=== PATIENT | male | born 1970 | race Caucasian/White ===

== ENCOUNTER 2017-11-06 00:16 | Inpatient (IN) ==
[2017-11-06] MEDS ORDERED: Ondansetron 4 MG/2 ML VIAL IVP PRN (02:27)
[2017-11-06] MEDS ORDERED: Naloxone 0.4 MG/ML INJ IVP PRN (02:27)
[2017-11-06] MEDS ORDERED: Ketorolac 30 MG/ML VIAL IVP PRN (02:27)
[2017-11-06] MEDS ORDERED: Ringers Solution, Lactated 1,000 ML ONE ×2 (02:36→15:02)
[2017-11-06] MEDS ORDERED: Isovue-370 500 ML INFUS..BTL IV ONE (02:43)
[2017-11-06] MEDS ORDERED: *HR* Dextrose 50 % in Water (Syg) 50 ML SYRINGE IVP ONE (02:46)
[2017-11-06 02:59] LABS: ABG Base Excess 16 mEq/L (-2 to 3); ABG HCO3 38 mEq/L (21-27); ABG Oxygen Saturation 94 % (95-98); ABG PCO2 38 mmHg (35-45); ABG PH 7.62 pH Units (7.32-7.45); ABG PO2 57 mmHg (85-104); ABG TCO2 40 mEq/L (20-26); Blood Gas Modality ASSIST CONTROL; Blood Gas PEEP 8 cm H2O; Blood Gas Respiration Rate 12; Blood Gas VT 550 cc
[2017-11-06] MEDS: Ringers Solution, Lactated 1,000 ML IVC ONE ×2 (03:07→15:34)
[2017-11-06 03:10] LABS: Basophils % 0.3 %; Eosinophils # 0.1 K/mcL (0.0-0.6); Hematocrit 39.7 % (37.5-50.1); Hemoglobin 11.1 g/dL (12.9-16.9); Immature Granulocytes % 0.6 % (0-4); Lymphocytes # 3.2 K/mcL (0.6-4.6); Lymphocytes % 30.2 %; Mean Corpuscular Volume 103.7 fL (83.0-100.0); Mean Platelet Volume 10.1 fL (9.4-12.4); Monocytes # 0.7 K/mcL (0.0-1.3); Monocytes % 6.7 %; Neutrophils # 6.5 K/mcL (1.6-8.9); Nucleated Red Blood Cells 0.2 /100 WBC (0); Platelet Count 199 K/mcL (140-400); Red Blood Count 3.83 M/mcL (4.19-5.50); Red Cell Distribution Width 15.5 % (11.5-14.5); Segmented Neutrophils % 61.2 %
[2017-11-06 03:12] LABS: Hypochromasia Present (Not Present); Platelet Estimate Normal (Normal)
[2017-11-06 03:15] LABS: INR 1.1; Prothrombin Time 12.6 Seconds (9.4-12.1)
--- NOTE | 2017-11-06 03:26 | Internal Med History&Physical ---
<Karel Padilla - Last Filed: 11/06/17 04:31> Date of Encounter: 11/06/17 Time of Encounter: 03:25 Internal Medicine - H&P: HPI Chief complaint: Unresponsive/hypoxia Admitted From: Emergency Dept History of present illness: Mr. Mckeon is a 47 year old male with history of chronic respiratory failure with tracheostomy, COPD presents from [place] ED due to acute hypoxia and unresponsiveness. Patient is minimally responsive at this time so history is somewhat limited and obtained from the medical record. Patient is a resident at an [facility] and was found unresponsive with oxygen saturation in the 50s. Patient required bagging support to eventually get his oxygen saturation to acceptable levels. Per the records upon arrival to the emergency department the patient was sitting up and looking around and requesting something to right with. The ED reported that the patient was able to communicate with them. Upon arrival to the intensive care unit the patient is minimally responsive to pain only. He does not appear to be in any acute distress. Past Med Surg Social Fam HX - Past Medical History Medical history: COPD, GERD, hyperlipidemia, hypertension, peripheral artery disease Additional medical history: dysphagia, thrombosis, acute resp failure, constipation, alcohol abuse, anemnia Psychiatric history: depression, other - Past Surgical History Additional surgical history: PEG tube site reversed. trach - Social History Smoking Status: Former smoker Alcohol use: unknown Drug use: unknown Internal Medicine - H&P: Meds Atorvastatin [Lipitor] 80 mg PO HS 08/17/17 [History] Escitalopram Oxalate 5 mg PO DAILY 08/17/17 [History] Folic Acid 1 mg PO DAILY 08/17/17 [History] Ipratropium/Albuterol Neb [Duoneb] 3 ml IH Q6HR 08/17/17 [History] Tramadol HCl [Ultram] 50 mg PO TID PRN 08/17/17 [History] Aspirin 81 mg PO DAILY tab.chew 08/18/17 [Rx] Bumetanide [Bumex] 0.5 mg PO DAILY 365 Days tablet 08/18/17 [Rx] Gabapentin [Neurontin] 400 mg PO TID 30 Days #90 capsule 08/18/17 [Rx] Lactobacillus [Culturelle] 1 each PO BID 3 Days cap.sprink 08/18/17 [Rx] Docusate [Colace] 100 mg PO TID 09/04/17 [History] Multivit-Min/Iron Fum/Folic AC [Olmsw-Mvdbqnq-Gcnzumvx Tablet] 1 each PO DAILY 09/04/17 [History] Scopolamine Patch [Transderm-Scop] 1.5 mg TD Q72H 09/04/17 [History] Sennosides [Senna] 8.6 mg PO TID 09/04/17 [History] Acetaminophen [Tylenol] 650 mg PO Q6H PRN 11/05/17 [History] Bisacodyl [Dulcolax] 10 mg PO DAILY PRN 11/05/17 [History] Magnesium Citrate 296 ml PO PRN PRN 11/05/17 [History] Simethicone [Bicarsim] 80 mg PO PRN PRN 11/05/17 [History] 3 Allergy/AdvReac Type Severity Reaction Status Date / Time No Known Allergies Allergy Verified 09/04/17 21:39 ROS unobtainable: due to mental status All Systems PM: A 10-system review of systems was performed and is negative for pertinent findings except as documented above in the HPI. - Constitutional Vitals: Temp Pulse Resp BP Pulse Ox 100.2 F H 71 10 90/61 100 11/06/17 03:00 11/06/17 03:00 11/06/17 03:00 11/06/17 03:00 11/06/17 03:00 General appearance: Present: A&O X 0 Exam: Minimally responsive to painful stimuli only - Head Head exam: Present: atraumatic, normal inspection, normocephalic - Eye Eye exam: Present: EOMI - ENT ENT exam: Present: mucous membranes dry - Neck Neck exam general surgery: Present: supple. Absent: tenderness Additional comments: Tracheostomy present. No surrounding erythema or drainage noted. - Respiratory Respiratory exam: Absent: accessory muscle use, rales, respiratory distress, rhonchi, wheezes, tachypnea Additional comments: Coarse breath sounds - Cardiovascular Cardiovascular exam: Present: irregular rhythm. Absent: gallop, rubs, systolic murmur, tachycardia - GI/Abdominal GI/Abdominal exam: Present: diminished bowel sounds, soft. Absent: distended, tenderness Additional comments: Surgical scar from prior PEG tube present - Extremities Exam Extremities exam: Present: radial pulses palpable and symmetrical. Absent: cyanotic, joint swelling, mottling, pedal edema, warm Additional comments: Extremities cool to touch - Neurological Exam Neurological exam: Present: altered, facial droop Additional comments: Patient is minimally responsive to pain only. He moves all 4 extremities spontaneously with pain. There may be mild left-sided facial droop present however is difficult to appreciate. - Skin Skin exam: Present: dry, intact Additional comments: Cool extremities Internal Med - H&P Results - Labs CBC & Chem 7: 11/06/17 02:59 11/06/17 02:59 Labs: Short CBC 11/06/17 Range/Units 02:59 WBC 10.6 (4.3-11.1) K/mcL Hgb 11.1 L D (12.9-16.9) g/dL Hct 39.7 (37.5-50.1) % Plt Count 199 (140-400) K/mcL Neutrophils # 6.5 (1.6-8.9) K/mcL - ABG Interpretation ABG results: 11/06/17 02:55 ABG pH 7.62 H* ABG pCO2 38 ABG pO2 57 L D ABG HCO3 38 H ABG Total CO2 40 H ABG O2 Saturation 94 L ABG Base Excess 16 H - Assessment and plan (1) Acute encephalopathy Current Visit: Yes Status: Acute Assessment and plan: Patient only responsive to minimal pain at this time. Etiology unclear at this time, may be related to hypoxia versus underlying infectious process versus acute neurologic insult like CVA. No obvious focal deficits. CT the head was negative. Unfortunately the fact that the patient is requiring full ventilatory support at this time means he cannot undergo MRI. We will work to improve the patient's respiratory and metabolic status and continue to monitor his mental status. (2) Acute and chronic respiratory failure Current Visit: No Status: Acute Assessment and plan: Patient has chronic tracheostomy and per the report patient uses trach mask during the day and ventilator at night. We called the fpc who states that the patient uses the ventilator when he feels like he needs it and his ventilator settings are respiratory rate of 14, tidal volume 500, PEEP of 10 with 4 L of oxygen bleed in. Patient was hypoxic on arrival. Did respond well to higher peeps and oxygenation improved. Possibly due to noncompliance with ventilator when he needs it. Feel like underlying pneumonia and sepsis is less likely given his normal chest x-ray, lack of leukocytosis, tachycardia, fever. She developed sores support Will wean as tolerated. ABG revealed respiratory alkalosis, likely due to overventilation. We will place the patient on minimal vent settings with respiratory rate of 10 and tidal volume of 400 in an attempt to correct his alkalosis. Repeat ABG in approximately 30 minutes. Qualifiers: Respiratory failure complication: hypoxia Qualified Code(s): J96.21 - Acute and chronic respiratory failure with hypoxia (3) Hypovolemia Current Visit: Yes Status: Acute Assessment and plan: Patient has evidence of hypovolemia with low blood pressures. Unclear but may be related to decreased oral intake. Our giving fluid hydration with lactated Ringer boluses, patient has received 3 L. We will continue to monitor blood pressure and replace fluids as necessary. (4) Atrial fibrillation and flutter Current Visit: No Status: Acute Assessment and plan: Atrial fibrillation noted on telemetry. Per the records the patient has no history of atrial fibrillation but review of the patient's outpatient testing reveals that he has monitor strips previously that if shown atrial fibrillation , likely indicative of paroxysmal A. fib. Heart rate under control at this time. [id number] score of 1, aspirin only, no indication for anticoagulation at this time. Patient is already on aspirin 81 mg. We will check echocardiogram. Continue telemetry. (5) Macrocytic anemia Current Visit: No Status: Acute Assessment and plan: Patient has a history of macrocytosis, hemoglobin 11.1. Review of records showed a low-normal B12 which could be the cause. We will repeat B12 levels. If less than 400 consider supplementation. (6) DVT prophylaxis Current Visit: Yes Status: Acute Assessment and plan: Heparin 5000 units subcutaneous twice a day (7) Lactic acidosis Current Visit: Yes Status: Acute Assessment and plan: Etiology unclear however most likely appears to be related to a possible bulimia as well as hypoxia. Had peaked at 4.4, repeat down to 3.4, repeat pending. Are giving fluids. At this point I do not feel this is related to sepsis given that the patient does not have a leukocytosis, tachycardia, fever or clear source of infection. - Time Spent With Patient Total time spent is greater than 50% in coordination of care (as documented) at patient's floor/unit and/or counseling patient: <Levon Shell - Last Filed: 11/06/17 04:46> Date of Encounter: 11/06/17 Internal Medicine - H&P: HPI History of present illness: Mr. Mckeon is a 47 year old male All Systems PM: A 10-system review of systems was performed and is negative for pertinent findings except as documented above in the HPI. - Constitutional Vitals: Temp Pulse Resp BP Pulse Ox 100.2 F H 74 10 84/53 96 11/06/17 03:00 11/06/17 04:00 11/06/17 04:14 11/06/17 04:00 11/06/17 04:14 Internal Med - H&P Results - Labs CBC & Chem 7: 11/06/17 02:59 11/06/17 02:59 Labs: Short CBC 11/06/17 Range/Units 02:59 WBC 10.6 (4.3-11.1) K/mcL Hgb 11.1 L D (12.9-16.9) g/dL Hct 39.7 (37.5-50.1) % Plt Count 199 (140-400) K/mcL Neutrophils # 6.5 (1.6-8.9) K/mcL BMP 11/06/17 02:59 Sodium 145 Potassium 3.7 Chloride 100 Carbon Dioxide 40 H* BUN 10 Creatinine 0.64 L Glucose 105 Calcium 9.5 Liver Function 11/06/17 Range/Units 02:59 Total Bilirubin 0.8 (0.3-1.0) mg/dL Direct Bilirubin 0.3 H (0.0-0.2) mg/dL AST 15 (13-39) Units/L ALT 13 (7-52) Units/L Alkaline Phosphatase 80 (34-104) Units/L Albumin 3.2 L (3.5-5.7) g/dL - ABG Interpretation ABG results: 11/06/17 02:55 ABG pH 7.62 H* ABG pCO2 38 ABG pO2 57 L D ABG HCO3 38 H ABG Total CO2 40 H ABG O2 Saturation 94 L ABG Base Excess 16 H - Assessment and plan (1) Macrocytic anemia Current Visit: No Status: Acute (2) Acute and chronic respiratory failure Current Visit: No Status: Acute Qualifiers: Respiratory failure complication: hypoxia Qualified Code(s): J96.21 - Acute and chronic respiratory failure with hypoxia (3) Atrial fibrillation and flutter Current Visit: No Status: Acute (4) Acute encephalopathy Current Visit: Yes Status: Acute (5) DVT prophylaxis Current Visit: Yes Status: Acute (6) Hypovolemia Current Visit: Yes Status: Acute (7) Lactic acidosis Current Visit: Yes Status: Acute - Time Spent With Patient Total time spent is greater than 50% in coordination of care (as documented) at patient's floor/unit and/or counseling patient: - Attending Attestation Bryan Mckeon is a 47 year old man with a history of chronic respiratory failure on trach, COPD, HTN and PAD who presented to [facility] from [place] with the complaint of respiratory distress. It is reported that the patient was found poorly responsive with O2 saturation in the 50s. Manual bagging was attempted then subsequently was connected to a ventilator. His O2 sats remained in the 90s. He was seen to have a lactate of 2.9 which increased to 4.4 although the specimen was hemolyzed. No leukocytosis or anemia. CXR reviewed independently by me revealed no lobar consolidation or effusion. He was given IVF and empiric abx. At this time he appears poorly responsive. His BP systolic is in the high 80s to low 90s. Heart rate in the mid-70s. SpO2 93-94% on Fio2 60%. Physical exam remarkable for an obtunded white male who is only responsive to painful stimuli and localizes accordingly, pinpoint pupils, left facial droop with drooling on that side, not breathing over the set vent rate of 12, chest without wheezing, rales or rhonchi, abdomen soft and no apparent tenderness on palpation, contracted lower extremities, dry skin and mucous membranes. Will admit to ICU in the setting of acute hypoxic respiratory failure and acute encephalopathy. ABG/labs obtained showed a mixed respiratory and metabolic alkalosis based on my assessment. X-rays do not show any evidence of pneumonia, he is not tachycardic, no leukocytosis. Blood cultures have been obtained and empiric initial abx given however at this time will defer continuation of these agents. Continue fluid resuscitation in his dehydrated state. Will benefit from a chest CT w/ contrast to rule out pulmonary embolism. Reduce tidal volume and adjust to 4-6ml/kg PBW. Frequent ABG checks. Obtain UA and comprehensive labs. Mental status and facial drooping concerning for infarct; may need MRI if feasible if mental status does not improve with rehydration and oxygenation. Information obtained from outside is that he is on trach because of a drug overdose in the past; may have an element of hypoxic brain injury from that insult. CCT 65 mins. ILAN FAIRCHILD.
[2017-11-06 03:32] LABS: Alanine Aminotransferase 13 Units/L (7-52); Albumin 3.2 g/dL (3.5-5.7); Albumin/Globulin Ratio 1.1 (1.1-2.2); Alkaline Phosphatase 80 Units/L (34-104); Aspartate Amino Transferase 15 Units/L (13-39); BUN/Creatinine Ratio 16 (6-26); Bilirubin,Direct 0.3 mg/dL (0.0-0.2); Bilirubin,Indirect 0.5 mg/dL (0.0-1.2); Bilirubin,Total 0.8 mg/dL (0.3-1.0); Blood Urea Nitrogen 10 mg/dL (6-20); Calcium 9.5 mg/dL (8.6-10.3); Carbon Dioxide 40 mEq/L (23-29); Chloride 100 mEq/L (98-107); Glucose 105 mg/dL (70-105); Magnesium 1.7 mg/dL (1.6-2.6); Osmolality,Calculated 299 (280-300); Potassium 3.7 mEq/L (3.5-5.1); Sodium 145 mEq/L (136-145); Total Protein 6.2 g/dL (6.4-8.9); eGFR For Non-African Americans > 60 (> 60)
[2017-11-06] MEDS ORDERED: Ringers Solution, Lactated 1,000 ML IVC ONE ×2 (04:15→10:03)
[2017-11-06 05:06] LABS: Bilirubin,Urine Negative (Negative); Blood,Urine Negative (Negative); Clarity,Urine Clear (Clear); Color,Urine Yellow (Yellow); Glucose,Urine (UA) Normal (Normal); Ketones,Urine Negative (Negative); Leukocyte Esterase,Urine Negative (Negative); Nitrite,Urine Negative (Negative); PH,Urine 7.5 pH Units (5.0-8.0); Protein,Urine Trace mg/dL (Neg-Trace); Urobilinogen,Urine Normal (Normal)
[2017-11-06 05:09] LABS: Bacteria,Urine None Seen per hpf (None-Few); Hyaline Casts,Urine None Seen per lpf (None-Few); Squamous Epithelial Cell,Urine Moderate per lpf (None-Few)
[2017-11-06 05:10] LABS: ABG Base Excess 15 mEq/L (-2 to 3); ABG HCO3 38 mEq/L (21-27); ABG Oxygen Saturation 91 % (95-98); ABG PCO2 39 mmHg (35-45); ABG PH 7.59 pH Units (7.32-7.45); ABG PO2 51 mmHg (85-104); ABG TCO2 39 mEq/L (20-26); Blood Gas Modality ASSIST CONTROL; Blood Gas PEEP 10 cm H2O; Blood Gas Respiration Rate 10; Blood Gas VT 400 cc
[2017-11-06] MEDS: Ringers Solution, Lactated 500 ML IVC SCH ×4 (06:06→17:52)
[2017-11-06 06:35] LABS: ABG Base Excess 17 mEq/L (-2 to 3); ABG HCO3 42 mEq/L (21-27); ABG Oxygen Saturation 94 % (95-98); ABG PCO2 49 mmHg (35-45); ABG PH 7.54 pH Units (7.32-7.45); ABG PO2 64 mmHg (85-104); ABG TCO2 43 mEq/L (20-26); Blood Gas Modality ASSIST CONTROL; Blood Gas PEEP 10 cm H2O; Blood Gas Respiration Rate 10; Blood Gas VT 350 cc
[2017-11-06] MEDS ORDERED: Aminoglycoside Consult 1 EACH MC ONE (07:18)
--- NOTE | 2017-11-06 08:38 | Pulmonology Consult Note ---
<KianaSachin S - Last Filed: 11/06/17 11:42> Date of Encounter: 11/06/17 Time of Encounter: 08:00 Assessment and Plan (1) Acute encephalopathy Current Visit: Yes Status: Acute Patient only minimally responsive to painful stimuli Patient on ventilatory support CT head negative for acute infarct/bleed May order MRI if clinical status doesn't improve ABG shows mixed respiratory and metabolic alkalosis Blood cultures ordered Patient started on empiric IV zosyn and vancomycin (2) Acute and chronic respiratory failure Current Visit: No Status: Acute Patient has chronic tracheostomy Reports say he uses trach mask during day and ventilator at night Patient on vent settings of FiO2 40%, PEEP 10, Tidal volume 350, saturating at 97% ABG shows mixed respiratory and metabolic alkalosis with pH of 7.54, pCO2 49, HCO3 42 (improved from previous ABGs one and three hours prior) Will repeat ABG Gave 2 doses of acetazolamide 250 mg IV Chest CTA showed LLL atelectasis vs PNA, but no evidence of PE CXR showed bibasilar atelectasis Started on empiric vancomycin and zosyn Qualifiers: Respiratory failure complication: hypoxia Qualified Code(s): J96.21 - Acute and chronic respiratory failure with hypoxia (3) Atrial fibrillation and flutter Current Visit: No Status: Acute Patient has previous visits with atrial fibrillation, likely paroxysmal afib Ordere echo Patient currently in sinus rhythm (4) Hypovolemia Current Visit: Yes Status: Acute Patient's BP 86/54 Gave 3 boluses of 1 liter LR upon arrival Patient on maintenance LR fluid now Ordered another bolus of LR Continue to monitor and replace fluids as necessary (5) Lactic acidosis Current Visit: Yes Status: Acute Patient's peak lactate was 4.4 Now downward trend 3.4 > 2.3 Unlikely to be sepsis with normal white count, no tachycardia, afebrile, and no clear source of infection (6) Macrocytic anemia Current Visit: No Status: Acute Patient has history of macrocytic anemia Hgb is 11.1 today Ordered B12 and folate levels Will consider supplementation if needed (7) DVT prophylaxis Current Visit: Yes Status: Acute Subcutaneous heparin History of Present Illness Consult date: 11/06/17 Requesting physician: Tomas Fuentes Reason for consult: other (Acute encephalopathy and hypotension) Chief complaint: Respiratory distress History of present illness: 47 year old male with PMHx of chronic resp failure s/p tracheostomy, COPD, and HTN presented to [facility] ED from [facility] with unresponsiveness and respiratory distress. Patient was reported to be saturating in the 50s. He was bagged to increase oxygenation to 90s. Patient was given 1 dose of vancomycin and zosyn for empiric coverage in ED. Per reports, patient was communicating with staff in ED. Patient also found to be hypotensive and was transferred to ICU. He is on mechanical ventilation and only minimally responsive to painful stimuli in ICU. Patient was given 1 liter bolus x3 and is now on maintenance LR fluid. Chest CT showed LLL atelectasis vs PNA, but no evidence of PE. Brain CT was negative for acute infarct. Patient's initial ABG showed mixed respiratory and metabolic alkalosis with pH of 7.62. Past Med Surg Social Fam HX - Past Medical History Medical history: COPD, GERD, hyperlipidemia, hypertension, peripheral artery disease Additional medical history: dysphagia, thrombosis, acute resp failure, constipation, alcohol abuse, anemnia Psychiatric history: depression, other - Past Surgical History Additional surgical history: PEG tube site reversed. trach - Social History Smoking Status: Former smoker Alcohol use: unknown Drug use: unknown Medications and Allergies Atorvastatin [Lipitor] 80 mg PO HS 08/17/17 [History] Escitalopram Oxalate 5 mg PO DAILY 08/17/17 [History] Folic Acid 1 mg PO DAILY 08/17/17 [History] Ipratropium/Albuterol Neb [Duoneb] 3 ml IH Q6HR 08/17/17 [History] Tramadol HCl [Ultram] 50 mg PO TID PRN 08/17/17 [History] Aspirin 81 mg PO DAILY tab.chew 08/18/17 [Rx] Bumetanide [Bumex] 0.5 mg PO DAILY 365 Days tablet 08/18/17 [Rx] Gabapentin [Neurontin] 400 mg PO TID 30 Days #90 capsule 08/18/17 [Rx] Lactobacillus [Culturelle] 1 each PO BID 3 Days cap.sprink 08/18/17 [Rx] Docusate [Colace] 100 mg PO TID 09/04/17 [History] Multivit-Min/Iron Fum/Folic AC [Mxpjr-Rmjgucr-Wfdjjwzd Tablet] 1 each PO DAILY 09/04/17 [History] Scopolamine Patch [Transderm-Scop] 1.5 mg TD Q72H 09/04/17 [History] Sennosides [Senna] 8.6 mg PO TID 09/04/17 [History] Acetaminophen [Tylenol] 650 mg PO Q6H PRN 11/05/17 [History] Bisacodyl [Dulcolax] 10 mg PO DAILY PRN 11/05/17 [History] Simethicone [Bicarsim] 80 mg PO PRN PRN 11/05/17 [History] Potassium Chloride [K-Tab ER] 20 meq PO DAILY 11/06/17 [History] 3 Allergy/AdvReac Type Severity Reaction Status Date / Time No Known Allergies Allergy Verified 09/04/17 21:39 All Systems: The remainder of the systems were reviewed and are negative Physical Examination Vital Signs: Vital Signs, Last 4 Hours Temp Pulse Resp BP Pulse Ox 11/06/17 08:00 98.2 F 11/06/17 07:15 10 78/42 100 11/06/17 07:00 72 10 78/42 95 11/06/17 06:23 10 81/53 100 11/06/17 06:00 73 10 81/53 100 11/06/17 05:00 63 95/84 General appearance: comatose Effort: other (on vent) Auscultation: bilateral: clear Cardiovascular: regular rate and rhythm Gastrointestinal: soft Integumentary: normal Extremities: no cyanosis, no edema unable to assess due to mental status Ventilator Settings Ventilator Settings: Ventilator Settings, Last 8 Hours Ventilator Tidal Volume 350 Setting Ventilator Tidal Volume 350 Setting Ventilator Tidal Volume 350 Setting Ventilator Tidal Volume 350 Setting Ventilator Tidal Volume 350 Setting Ventilator Tidal Volume 400 Setting Ventilator Tidal Volume 400 Setting Ventilator Tidal Volume 400 Setting Ventilator Tidal Volume 450 Setting Ventilator Tidal Volume 550 Setting Ventilator Tidal Volume 550 Setting Ventilator Tidal Volume 550 Setting Ventilator Respiratory Rate 10 Setting Ventilator Respiratory Rate 10 Setting Ventilator Respiratory Rate 10 Setting Ventilator Respiratory Rate 10 Setting Ventilator Respiratory Rate 10 Setting Ventilator Respiratory Rate 10 Setting Ventilator Respiratory Rate 10 Setting Ventilator Respiratory Rate 10 Setting Ventilator Respiratory Rate 10 Setting Ventilator Respiratory Rate 12 Setting Ventilator Respiratory Rate 12 Setting Ventilator Respiratory Rate 12 Setting Actual Respiratory Rate 10 Actual Respiratory Rate 10 Actual Respiratory Rate 10 Actual Respiratory Rate 10 Actual Respiratory Rate 10 Actual Respiratory Rate 10 Actual Respiratory Rate 12 Actual Respiratory Rate 24 Positive End Expiratory 10 Pressure Positive End Expiratory 10 Pressure Positive End Expiratory 10 Pressure Positive End Expiratory 10 Pressure Positive End Expiratory 10 Pressure Positive End Expiratory 10 Pressure Positive End Expiratory 10 Pressure Positive End Expiratory 10 Pressure Positive End Expiratory 8 Pressure Positive End Expiratory 8 Pressure Positive End Expiratory 5 Pressure Positive End Expiratory 5 Pressure Peak Inspiratory Airway 23 Pressure Peak Inspiratory Airway 23 Pressure Peak Inspiratory Airway 23 Pressure Peak Inspiratory Airway 24 Pressure Peak Inspiratory Airway 27 Pressure Peak Inspiratory Airway 27 Pressure Peak Inspiratory Airway 25 Pressure Peak Inspiratory Airway 27 Pressure Results - Laboratory Findings CBC and BMP: 11/06/17 02:59 11/06/17 02:59 ABG ABG pH 7.54 pH Units (7.32-7.45) H 11/06/17 06:32 ABG pCO2 49 mmHg (35-45) H 11/06/17 06:32 ABG pO2 64 mmHg (85-104) L 11/06/17 06:32 ABG O2 Saturation 94 % (95-98) L 11/06/17 06:32 PT/INR, D-dimer PT 12.6 Seconds (9.4-12.1) H 11/06/17 02:59 Abnormal lab findings: Abnormal lab results RBC 3.83 M/mcL (4.19-5.50) L 11/06/17 02:59 Hgb 11.1 g/dL (12.9-16.9) L D 11/06/17 02:59 MCV 103.7 fL (83.0-100.0) H 11/06/17 02:59 MCHC 28.0 g/dL (31.6-35.5) L 11/06/17 02:59 RDW 15.5 % (11.5-14.5) H 11/06/17 02:59 Nucleated RBCs/100 WBC 0.2 /100 WBC (0) H 11/06/17 02:59 Hypochromasia Present (Not Present) A 11/06/17 02:59 PT 12.6 Seconds (9.4-12.1) H 11/06/17 02:59 ABG pH 7.54 pH Units (7.32-7.45) H 11/06/17 06:32 ABG pCO2 49 mmHg (35-45) H 11/06/17 06:32 ABG pO2 64 mmHg (85-104) L 11/06/17 06:32 ABG HCO3 42 mEq/L (21-27) H 11/06/17 06:32 ABG Total CO2 43 mEq/L (20-26) H 11/06/17 06:32 ABG O2 Saturation 94 % (95-98) L 11/06/17 06:32 ABG Base Excess 17 mEq/L (-2 to 3) H 11/06/17 06:32 Carbon Dioxide 40 mEq/L (23-29) H* 11/06/17 02:59 Creatinine 0.64 mg/dL (0.70-1.30) L 11/06/17 02:59 Lactic Acid 3.4 mmol/L (0.5-2.2) H 11/06/17 02:59 Direct Bilirubin 0.3 mg/dL (0.0-0.2) H 11/06/17 02:59 Serum Total Protein 6.2 g/dL (6.4-8.9) L 11/06/17 02:59 Albumin 3.2 g/dL (3.5-5.7) L 11/06/17 02:59 Ur Specific [place] 1.030 (1.010-1.025) H 11/06/17 05:00 Urine Microscopic RBC 3-5 per hpf (0-3) H 11/06/17 05:00 Urine Microscopic WBC 3-5 per hpf (0-3) H 11/06/17 05:00 Ur Squamous Epith Cells Moderate per lpf (None-Few) H 11/06/17 05:00 - Diagnostic Findings Chest x-ray: report reviewed, image reviewed CT scan - chest: report reviewed, image reviewed - Clinical Findings Intake & Output: Intake & Output 11/05/17 11/06/17 11/06/17 23:59 07:59 15:59 Intake Total 1999 Output Total 350 / 350 350 / 350 Balance 1650 / 1650 -350 / -350 Weight 94 kg Consult Discharge Plan - Plan Referrals: Best Perez MD [Primary Care Provider] - <Tomas Fuentes - Last Filed: 11/06/17 19:36> Date of Encounter: 11/06/17 All Systems: The remainder of the systems were reviewed and are negative Physical Examination Vital Signs: Vital Signs, Last 4 Hours Temp Pulse Resp BP Pulse Ox 11/06/17 08:00 98.2 F 11/06/17 07:15 10 78/42 100 11/06/17 07:00 72 10 78/42 95 11/06/17 06:23 10 81/53 100 11/06/17 06:00 73 10 81/53 100 11/06/17 05:00 63 95/84 Ventilator Settings Ventilator Settings: Ventilator Settings, Last 8 Hours Ventilator Tidal Volume 350 Setting Ventilator Tidal Volume 350 Setting Ventilator Tidal Volume 350 Setting Ventilator Tidal Volume 350 Setting Ventilator Tidal Volume 350 Setting Ventilator Tidal Volume 400 Setting Ventilator Tidal Volume 400 Setting Ventilator Tidal Volume 400 Setting Ventilator Tidal Volume 450 Setting Ventilator Tidal Volume 550 Setting Ventilator Tidal Volume 550 Setting Ventilator Tidal Volume 550 Setting Ventilator Respiratory Rate 10 Setting Ventilator Respiratory Rate 10 Setting Ventilator Respiratory Rate 10 Setting Ventilator Respiratory Rate 10 Setting Ventilator Respiratory Rate 10 Setting Ventilator Respiratory Rate 10 Setting Ventilator Respiratory Rate 10 Setting Ventilator Respiratory Rate 10 Setting Ventilator Respiratory Rate 10 Setting Ventilator Respiratory Rate 12 Setting Ventilator Respiratory Rate 12 Setting Ventilator Respiratory Rate 12 Setting Actual Respiratory Rate 10 Actual Respiratory Rate 10 Actual Respiratory Rate 10 Actual Respiratory Rate 10 Actual Respiratory Rate 10 Actual Respiratory Rate 10 Actual Respiratory Rate 12 Actual Respiratory Rate 24 Positive End Expiratory 10 Pressure Positive End Expiratory 10 Pressure Positive End Expiratory 10 Pressure Positive End Expiratory 10 Pressure Positive End Expiratory 10 Pressure Positive End Expiratory 10 Pressure Positive End Expiratory 10 Pressure Positive End Expiratory 10 Pressure Positive End Expiratory 8 Pressure Positive End Expiratory 8 Pressure Positive End Expiratory 5 Pressure Positive End Expiratory 5 Pressure Peak Inspiratory Airway 23 Pressure Peak Inspiratory Airway 23 Pressure Peak Inspiratory Airway 23 Pressure Peak Inspiratory Airway 24 Pressure Peak Inspiratory Airway 27 Pressure Peak Inspiratory Airway 27 Pressure Peak Inspiratory Airway 25 Pressure Peak Inspiratory Airway 27 Pressure Results - Laboratory Findings CBC and BMP: 11/06/17 02:59 11/06/17 02:59 ABG ABG pH 7.54 pH Units (7.32-7.45) H 11/06/17 06:32 ABG pCO2 49 mmHg (35-45) H 11/06/17 06:32 ABG pO2 64 mmHg (85-104) L 11/06/17 06:32 ABG O2 Saturation 94 % (95-98) L 11/06/17 06:32 PT/INR, D-dimer PT 12.6 Seconds (9.4-12.1) H 11/06/17 02:59 Abnormal lab findings: Abnormal lab results RBC 3.83 M/mcL (4.19-5.50) L 11/06/17 02:59 Hgb 11.1 g/dL (12.9-16.9) L D 11/06/17 02:59 MCV 103.7 fL (83.0-100.0) H 11/06/17 02:59 MCHC 28.0 g/dL (31.6-35.5) L 11/06/17 02:59 RDW 15.5 % (11.5-14.5) H 11/06/17 02:59 Nucleated RBCs/100 WBC 0.2 /100 WBC (0) H 11/06/17 02:59 Hypochromasia Present (Not Present) A 11/06/17 02:59 PT 12.6 Seconds (9.4-12.1) H 11/06/17 02:59 ABG pH 7.54 pH Units (7.32-7.45) H 11/06/17 06:32 ABG pCO2 49 mmHg (35-45) H 11/06/17 06:32 ABG pO2 64 mmHg (85-104) L 11/06/17 06:32 ABG HCO3 42 mEq/L (21-27) H 11/06/17 06:32 ABG Total CO2 43 mEq/L (20-26) H 11/06/17 06:32 ABG O2 Saturation 94 % (95-98) L 11/06/17 06:32 ABG Base Excess 17 mEq/L (-2 to 3) H 11/06/17 06:32 Carbon Dioxide 40 mEq/L (23-29) H* 11/06/17 02:59 Creatinine 0.64 mg/dL (0.70-1.30) L 11/06/17 02:59 Lactic Acid 3.4 mmol/L (0.5-2.2) H 11/06/17 02:59 Direct Bilirubin 0.3 mg/dL (0.0-0.2) H 11/06/17 02:59 Serum Total Protein 6.2 g/dL (6.4-8.9) L 11/06/17 02:59 Albumin 3.2 g/dL (3.5-5.7) L 11/06/17 02:59 Ur Specific [place] 1.030 (1.010-1.025) H 11/06/17 05:00 Urine Microscopic RBC 3-5 per hpf (0-3) H 11/06/17 05:00 Urine Microscopic WBC 3-5 per hpf (0-3) H 11/06/17 05:00 Ur Squamous Epith Cells Moderate per lpf (None-Few) H 11/06/17 05:00 - Clinical Findings Intake & Output: Intake & Output 11/05/17 11/06/17 11/06/17 23:59 07:59 15:59 Intake Total 1999 / 1999 Output Total 350 / 350 350 / 350 Balance 1650 / 1650 -350 / -350 Weight 94 kg - Attending Attestation I examined this patient and my medical decision-making was reviewed with the Resident Physician. I agree with the documented findings, disposition and treatment plan as described except to the extent set forth below. Patient seen and examined. Labs, radiology, chart personally reviewed. Agree with resident's history and physical, assessment, plan with following comments: [employer]ARN[employer]: Patient does not follows commands, is not clear to me about his baseline. CT head was done which was negative. This could be metabolic, however subclinical seizure would be in the differential diagnosis. If continue will consult neurology and may need EEG. Pulmonary: Acceptable oxygenation and ventilation. Patient has what they suspect rebound metabolic alkalosis and his vent setting has been changed. I doubt this is pneumonia, I suspect this is atelectasis, however we will continue broad-spectrum antibiotics at this time and tell cultures is back. Trach in place and patient will be on the vent for now until we've more informations. Cardiovascular: Hypertensive and will give him fluid resuscitation. Patient will need echo, I suspect this is hypovolemia, however a patient like this other causes such as sepsis in the differential diagnosis. GI: Nutrition per dietary and GI prophylaxis per routine. Keep NPO for now due to his mental status. Heme: DVT prophylaxis per routine ID: Continue antibiotics and plan to de-escalation when culture backs and negative. Renal; urine out put and renal funtion reviewed. Patient to have fluid resuscitation. Endorcine: blood glucose is monitored Lines: all lines checked and no evidence of infections Skin: skin care to prevent pressure ulcers per nursing routine care Will update family when they are available. I spent 35 min of Critical Care time with this patient. It involved decision making of high complexity to assess, manipulate, and support vital organ system failure and/or to prevent further life threatening deterioration of the patient' s condition. The time involved in the performance of separately reportable procedures was not counted toward critical care time.
[2017-11-06 11:58] LABS: ABG Base Excess 11 mEq/L (-2 to 3); ABG HCO3 36 mEq/L (21-27); ABG Oxygen Saturation 97 % (95-98); ABG PCO2 52 mmHg (35-45); ABG PH 7.45 pH Units (7.32-7.45); ABG PO2 84 mmHg (85-104); ABG TCO2 38 mEq/L (20-26); Blood Gas Modality AF; Blood Gas PEEP 10 cm H2O; Blood Gas Respiration Rate 10; Blood Gas VT 350 cc
[2017-11-06] MEDS: Hydrocortisone Sodium Succ 100 MG/2 ML VIAL IVP SCH (15:35)
[2017-11-06] MEDS: Piperacillin/Tazobactam 3.375 GM in 0.9 % Sodium Chloride Mini Bag 100 ML IVPB SCH (17:51)
[2017-11-06] MEDS: *HR* Heparin 5,000 UNIT/ML VIAL SQ SCH (22:15)
[2017-11-07] MEDS: Hydrocortisone Sodium Succ 100 MG/2 ML VIAL IVP SCH ×3 (00:50→18:13)
[2017-11-07 04:15] LABS: Basophils % 0.3 %; Eosinophils % 0.5 %; Hematocrit 36.7 % (37.5-50.1); Hemoglobin 10.7 g/dL (12.9-16.9); Immature Granulocytes % 0.9 % (0-4); Lymphocytes # 1.7 K/mcL (0.6-4.6); Lymphocytes % 26.7 %; Mean Corpuscular HGB Conc 29.2 g/dL (31.6-35.5); Mean Corpuscular Volume 99.5 fL (83.0-100.0); Mean Platelet Volume 10.4 fL (9.4-12.4); Monocytes # 0.3 K/mcL (0.0-1.3); Monocytes % 3.9 %; Neutrophils # 4.3 K/mcL (1.6-8.9); Nucleated Red Blood Cells 0.3 /100 WBC (0); Platelet Count 157 K/mcL (140-400); Red Blood Count 3.69 M/mcL (4.19-5.50); Red Cell Distribution Width 15.9 % (11.5-14.5); Segmented Neutrophils % 67.7 %
[2017-11-07 04:37] LABS: BUN/Creatinine Ratio 15 (6-26); Blood Urea Nitrogen 8 mg/dL (6-20); Calcium 8.7 mg/dL (8.6-10.3); Carbon Dioxide 29 mEq/L (23-29); Chloride 109 mEq/L (98-107); Glucose 140 mg/dL (70-105); Osmolality,Calculated 299 (280-300); Potassium 3.8 mEq/L (3.5-5.1); Sodium 144 mEq/L (136-145); eGFR For Non-African Americans > 60 (> 60)
[2017-11-07 05:05] LABS: Vitamin B12 466 pg/mL (250-1100)
[2017-11-07 05:12] LABS: Folate > 22.3 ng/mL (3.0-16.0)
[2017-11-07] MEDS: Piperacillin/Tazobactam 3.375 GM in 0.9 % Sodium Chloride Mini Bag 100 ML IVPB SCH ×2 (05:48→20:34)
[2017-11-07] MEDS: *HR* Heparin 5,000 UNIT/ML VIAL SQ SCH ×3 (05:49→20:37)
[2017-11-07] MEDS ORDERED: *HR* Heparin 5,000 UNIT/ML VIAL SQ SCH (06:00)
--- NOTE | 2017-11-07 10:03 | Pulmonology Progress Note ---
<KianaSachin S - Last Filed: 11/07/17 13:10> Date of Encounter: 11/07/17 Time of Encounter: 08:30 Assessment and Plan (1) Acute encephalopathy Current Visit: Yes Status: Acute Patient is now mildly responsive and follows some commands, this may be his baseline Patient on ventilatory support CT head negative for acute infarct/bleed May order MRI if clinical status doesn't improve ABG shows mixed respiratory and metabolic alkalosis Blood cultures ordered Patient started on empiric IV zosyn and vancomycin Swallow evaluation for diet Put in transfer order to (2) Acute on chronic respiratory failure Current Visit: Yes Status: Acute Patient has chronic tracheostomy Reports say he uses trach mask during day and ventilator at night Patient on vent settings of FiO2 40%, PEEP 10, Tidal volume 350, saturating at 100% Initial ABG showed mixed respiratoy and metabolic alkalosis Recent ABG shows pH of 7.45, pCO2 52, HCO3 36 (improved from previous ABGs) Gave 2 doses of acetazolamide 250 mg to improve alkalosis (11/06) Chest CTA showed LLL atelectasis vs PNA, but no evidence of PE CXR showed bibasilar atelectasis Started on empiric vancomycin and zosyn Ordered legionella antigen Ordered nasal swab - if negative, discontinue vancomycin Restarted mckenzie Qualifiers: Qualified Code(s): J96.21 - Acute and chronic respiratory failure with hypoxia (3) Hypovolemia Current Visit: Yes Status: Acute Patient's BP 136/88 Gave 4 boluses of 1 liter LR upon arrival and maintenance LR fluid for persistent hypotension with systolic in 70s-80s Started patient on IV hydrocortisone, which has significantly improved BP Continue to monitor and replace fluids as necessary (4) Lactic acidosis Current Visit: Yes Status: Acute Patient's peak lactate was 4.4 Now downward trend 3.4 > 2.3 Unlikely to be sepsis with normal white count, no tachycardia, afebrile, and no clear source of infection (5) Macrocytic anemia Current Visit: No Status: Acute Patient has history of macrocytic anemia Hgb is 11.1 > 10.7 today B12 normal Folate elevated at 22.3 (range 3-16) Will consider supplementation if needed (6) Atrial fibrillation and flutter Current Visit: Yes Status: Acute Patient has previous visits with atrial fibrillation, likely paroxysmal afib Echo shows EF of 55% with no valvular dysfunction Patient currently in sinus rhythm (7) DVT prophylaxis Current Visit: Yes Status: Acute Subcutaneous heparin Subjective Principal diagnosis: Acute respiratory failure Interval history: Patient seen this morning. He is mildly responsive and follows some commands, this may be his baseline. Yesterday he was started on IV hydrocortisone for hypotension. He is saturating well on vent. Unable to obtain history from patient. Objective PUL Vital signs: Last Vital Signs Temp 97.9 F 11/07/17 07:49 Pulse 74 11/07/17 08:50 Resp 20 11/07/17 09:34 BP 128/84 11/07/17 08:50 Pulse Ox 96 11/07/17 09:34 General appearance: no acute distress, lethargic Eyes: nonicteric Effort: other (on vent) Auscultation: bilateral: clear Cardiovascular: regular rate and rhythm Gastrointestinal: soft Integumentary: normal Extremities: no cyanosis, no edema Musculoskeletal: no deformities unable to assess due to mental status Ventilator Settings Ventilator Settings: Ventilator Settings, Last 8 Hours Ventilator Tidal Volume 350 Setting Ventilator Tidal Volume 350 Setting Ventilator Tidal Volume 350 Setting Ventilator Tidal Volume 350 Setting Ventilator Tidal Volume 350 Setting Ventilator Tidal Volume 350 Setting Ventilator Tidal Volume 350 Setting Ventilator Tidal Volume 350 Setting Ventilator Tidal Volume 350 Setting Ventilator Tidal Volume 350 Setting Ventilator Respiratory Rate 10 Setting Ventilator Respiratory Rate 10 Setting Ventilator Respiratory Rate 10 Setting Ventilator Respiratory Rate 10 Setting Ventilator Respiratory Rate 10 Setting Ventilator Respiratory Rate 10 Setting Ventilator Respiratory Rate 10 Setting Ventilator Respiratory Rate 10 Setting Ventilator Respiratory Rate 10 Setting Ventilator Respiratory Rate 10 Setting Actual Respiratory Rate 20 Actual Respiratory Rate 15 Actual Respiratory Rate 11 Actual Respiratory Rate 15 Actual Respiratory Rate 15 Actual Respiratory Rate 15 Actual Respiratory Rate 20 Actual Respiratory Rate 11 Actual Respiratory Rate 17 Actual Respiratory Rate 19 Positive End Expiratory 10 Pressure Positive End Expiratory 10 Pressure Positive End Expiratory 10 Pressure Positive End Expiratory 10 Pressure Peak Inspiratory Airway 22 Pressure Peak Inspiratory Airway 15 Pressure Peak Inspiratory Airway 20 Pressure Peak Inspiratory Airway 15 Pressure Peak Inspiratory Airway 15 Pressure Peak Inspiratory Airway 20 Pressure Peak Inspiratory Airway 19 Pressure Peak Inspiratory Airway 22 Pressure Peak Inspiratory Airway 20 Pressure Peak Inspiratory Airway 20 Pressure Results - Laboratory Findings CBC and BMP: 11/07/17 03:50 11/07/17 03:50 ABG ABG pH 7.45 pH Units (7.32-7.45) 11/06/17 11:55 ABG pCO2 52 mmHg (35-45) H 11/06/17 11:55 ABG pO2 84 mmHg (85-104) L 11/06/17 11:55 ABG O2 Saturation 97 % (95-98) 11/06/17 11:55 PT/INR, D-dimer PT 12.6 Seconds (9.4-12.1) H 11/06/17 02:59 Abnormal lab findings: Abnormal lab results RBC 3.69 M/mcL (4.19-5.50) L 11/07/17 03:50 Hgb 10.7 g/dL (12.9-16.9) L 11/07/17 03:50 Hct 36.7 % (37.5-50.1) L 11/07/17 03:50 MCHC 29.2 g/dL (31.6-35.5) L 11/07/17 03:50 RDW 15.9 % (11.5-14.5) H 11/07/17 03:50 Nucleated RBCs/100 WBC 0.3 /100 WBC (0) H 11/07/17 03:50 Hypochromasia Present (Not Present) A 11/06/17 02:59 PT 12.6 Seconds (9.4-12.1) H 11/06/17 02:59 ABG pCO2 52 mmHg (35-45) H 11/06/17 11:55 ABG pO2 84 mmHg (85-104) L 11/06/17 11:55 ABG HCO3 36 mEq/L (21-27) H 11/06/17 11:55 ABG Total CO2 38 mEq/L (20-26) H 11/06/17 11:55 ABG Base Excess 11 mEq/L (-2 to 3) H 11/06/17 11:55 Chloride 109 mEq/L (98-107) H 11/07/17 03:50 Creatinine 0.52 mg/dL (0.70-1.30) L 11/07/17 03:50 Glucose 140 mg/dL (70-105) H 11/07/17 03:50 POC Glucose 103 mg/dL (70-99) H 11/06/17 17:54 Lactic Acid 2.3 mmol/L (0.5-2.2) H 11/06/17 09:41 Direct Bilirubin 0.3 mg/dL (0.0-0.2) H 11/06/17 02:59 Serum Total Protein 6.2 g/dL (6.4-8.9) L 11/06/17 02:59 Albumin 3.2 g/dL (3.5-5.7) L 11/06/17 02:59 Folate > 22.3 ng/mL (3.0-16.0) H 11/07/17 03:50 Ur Specific [place] 1.030 (1.010-1.025) H 11/06/17 05:00 Urine Microscopic RBC 3-5 per hpf (0-3) H 11/06/17 05:00 Urine Microscopic WBC 3-5 per hpf (0-3) H 11/06/17 05:00 Ur Squamous Epith Cells Moderate per lpf (None-Few) H 11/06/17 05:00 - Microbiology Findings Microbiology Findings: Microbiology, Last 48 Hours 11/06/17 09:41 Blood Culture - Preliminary Peripheral Venipuncture Culture is incubating and being continuously monitored for growth. Final report to follow. - Diagnostic Findings Chest x-ray: report reviewed, image reviewed CT scan - chest: report reviewed, image reviewed - Clinical Findings Intake & Output: Intake & Output 11/06/17 11/07/17 11/07/17 23:59 07:59 15:59 Intake Total 2100 / 2100 250 / 250 Output Total 1550 / 1550 950 / 950 Balance 550 / 550 -700 / -700 Weight 92.49 kg Consult Discharge Plan - Plan Referrals: Best Perez MD [Primary Care Provider] - <John Shetty - Last Filed: 11/07/17 15:31> Date of Encounter: 11/07/17 Objective PUL Vital signs: Last Vital Signs Temp 98.5 F 11/07/17 11:46 Pulse 72 11/07/17 13:00 Resp 12 11/07/17 13:00 BP 139/98 11/07/17 13:00 Pulse Ox 100 11/07/17 13:00 Ventilator Settings Ventilator Settings: Ventilator Settings, Last 8 Hours Ventilator Tidal Volume 350 Setting Ventilator Tidal Volume 350 Setting Ventilator Tidal Volume 350 Setting Ventilator Tidal Volume 350 Setting Ventilator Tidal Volume 350 Setting Ventilator Tidal Volume 350 Setting Ventilator Tidal Volume 350 Setting Ventilator Respiratory Rate 10 Setting Ventilator Respiratory Rate 10 Setting Ventilator Respiratory Rate 10 Setting Ventilator Respiratory Rate 10 Setting Ventilator Respiratory Rate 10 Setting Ventilator Respiratory Rate 10 Setting Ventilator Respiratory Rate 10 Setting Actual Respiratory Rate 15 Actual Respiratory Rate 12 Actual Respiratory Rate 15 Actual Respiratory Rate 15 Actual Respiratory Rate 20 Actual Respiratory Rate 15 Actual Respiratory Rate 15 Positive End Expiratory 8 Pressure Positive End Expiratory 10 Pressure Peak Inspiratory Airway 15 Pressure Peak Inspiratory Airway 22 Pressure Peak Inspiratory Airway 15 Pressure Peak Inspiratory Airway 15 Pressure Peak Inspiratory Airway 22 Pressure Peak Inspiratory Airway 15 Pressure Peak Inspiratory Airway 15 Pressure Results - Laboratory Findings CBC and BMP: 11/07/17 03:50 11/07/17 03:50 ABG ABG pH 7.45 pH Units (7.32-7.45) 11/06/17 11:55 ABG pCO2 52 mmHg (35-45) H 11/06/17 11:55 ABG pO2 84 mmHg (85-104) L 11/06/17 11:55 ABG O2 Saturation 97 % (95-98) 11/06/17 11:55 PT/INR, D-dimer PT 12.6 Seconds (9.4-12.1) H 11/06/17 02:59 Abnormal lab findings: Abnormal lab results RBC 3.69 M/mcL (4.19-5.50) L 11/07/17 03:50 Hgb 10.7 g/dL (12.9-16.9) L 11/07/17 03:50 Hct 36.7 % (37.5-50.1) L 11/07/17 03:50 MCHC 29.2 g/dL (31.6-35.5) L 11/07/17 03:50 RDW 15.9 % (11.5-14.5) H 11/07/17 03:50 Nucleated RBCs/100 WBC 0.3 /100 WBC (0) H 11/07/17 03:50 Hypochromasia Present (Not Present) A 11/06/17 02:59 PT 12.6 Seconds (9.4-12.1) H 11/06/17 02:59 ABG pCO2 52 mmHg (35-45) H 11/06/17 11:55 ABG pO2 84 mmHg (85-104) L 11/06/17 11:55 ABG HCO3 36 mEq/L (21-27) H 11/06/17 11:55 ABG Total CO2 38 mEq/L (20-26) H 11/06/17 11:55 ABG Base Excess 11 mEq/L (-2 to 3) H 11/06/17 11:55 Chloride 109 mEq/L (98-107) H 11/07/17 03:50 Creatinine 0.52 mg/dL (0.70-1.30) L 11/07/17 03:50 Glucose 140 mg/dL (70-105) H 11/07/17 03:50 POC Glucose 103 mg/dL (70-99) H 11/06/17 17:54 Lactic Acid 2.3 mmol/L (0.5-2.2) H 11/06/17 09:41 Direct Bilirubin 0.3 mg/dL (0.0-0.2) H 11/06/17 02:59 Serum Total Protein 6.2 g/dL (6.4-8.9) L 11/06/17 02:59 Albumin 3.2 g/dL (3.5-5.7) L 11/06/17 02:59 Folate > 22.3 ng/mL (3.0-16.0) H 11/07/17 03:50 Ur Specific [place] 1.030 (1.010-1.025) H 11/06/17 05:00 Urine Microscopic RBC 3-5 per hpf (0-3) H 11/06/17 05:00 Urine Microscopic WBC 3-5 per hpf (0-3) H 11/06/17 05:00 Ur Squamous Epith Cells Moderate per lpf (None-Few) H 11/06/17 05:00 - Microbiology Findings Microbiology Findings: Microbiology, Last 48 Hours 11/07/17 Unknown Legionella Antigen - Final Urine,Catheterized 11/06/17 09:41 Blood Culture - Preliminary Peripheral Venipuncture Culture is incubating and being continuously monitored for growth. Final report to follow. - Clinical Findings Intake & Output: Intake & Output 11/06/17 11/07/17 11/07/17 23:59 07:59 15:59 Intake Total 2100 / 2100 250 / 250 Output Total 1550 / 1550 950 / 950 650 / 650 Balance 550 / 550 -700 / -700 -650 / -650 Weight 92.49 kg - Attending Attestation I saw and evaluated this patient and my medical decision-making was reviewed with the Resident Physician. I agree with the documented findings, disposition and treatment plan as described except to the extent set forth below. We independently had [id number] contact with the patient Patient seen and examined at bedside Labs, radiology, chart personally reviewed. Management was reviewed during multidisciplinary critical care rounds. [employer]: Patient is arousable following commands altered mental status due to encephalopathy most likely due to hypoxia and some hypercarbia complicated by alkalosis , looks like metabolic encephalopathy. Pulm: The patient developed this V/Q mismatch developed acute on chronic respiratory failure we will continue with broad-spectrum antibiotics and de- escalate accordingly diurese gently. Cards: Patient is hemodynamically stable FEN-GI: Diet according to nutrition Renal: Labs and output reviewed ID: To the broad-spectrum antibiotics will de-escalate accordingly if the nasal MRSA swab was negative will discontinue vancomycin. Heme/Onc: Thromboprophylaxis. Endo: Glucose Monitored Integ/MSK: Skin Care per routine ICU Nursing Protocol to prevent ulcers. Lines: All lines examined without evidence of infection : Dispo: Can Be transferred to stepdown. CODE:Full Code
--- NOTE | 2017-11-07 10:51 | Internal Med Progress Note ---
<Isai Scott - Last Filed: 11/07/17 15:33> Hospitalist Progress Note - Encounter Date of Encounter: 11/07/17 - Exam Vitals: Temp Pulse Resp BP Pulse Ox 98.5 F 72 12 139/98 100 11/07/17 11:46 11/07/17 13:00 11/07/17 13:00 11/07/17 13:00 11/07/17 13:00 - Assessment and Plan (1) Macrocytic anemia Current Visit: No Status: Acute (2) Acute and chronic respiratory failure Current Visit: No Status: Inactive (3) Atrial fibrillation and flutter Current Visit: No Status: Inactive (4) Acute encephalopathy Current Visit: Yes Status: Acute (5) DVT prophylaxis Current Visit: Yes Status: Acute (6) Hypovolemia Current Visit: Yes Status: Acute (7) Lactic acidosis Current Visit: Yes Status: Acute - Time Spent with Patient Total time spent is greater than 50% in coordination of care (as documented) at patient's floor/unit and/or counseling patient: Internal Medicine: Result - Labs CBC & Chem 7: 11/07/17 03:50 11/07/17 03:50 Labs: Short CBC 11/07/17 Range/Units 03:50 WBC 6.3 (4.3-11.1) K/mcL Hgb 10.7 L (12.9-16.9) g/dL Hct 36.7 L (37.5-50.1) % Plt Count 157 (140-400) K/mcL Neutrophils # 4.3 (1.6-8.9) K/mcL BMP 11/07/17 03:50 Sodium 144 Potassium 3.8 Chloride 109 H Carbon Dioxide 29 BUN 8 Creatinine 0.52 L Glucose 140 H Calcium 8.7 - ABG Interpretation ABG results: ABG ABG pH 7.45 pH Units (7.32-7.45) 11/06/17 11:55 ABG pCO2 52 mmHg (35-45) H 11/06/17 11:55 ABG pO2 84 mmHg (85-104) L 11/06/17 11:55 ABG O2 Saturation 97 % (95-98) 11/06/17 11:55 PT/INR, D-dimer PT 12.6 Seconds (9.4-12.1) H 11/06/17 02:59 - Impressions Impressions Echocardiogram 11/06/17 02:43 Impressions: LVEF 55%. Normal LV chamber size, wall thickness and function. Indeterminate diastolic function. Normal right ventricular structure and function. Unable to estimate RVSP due to lack of TR jet. No significant valvular dysfunction. Left Ventricular Wall Motion: Rest Echo Findings All wall segments showed normal motion. Findings: Study Quality * Technically sub-optimal due to poor echocardiographic windows. ECG Findings * Atrial fibrillation. Left Ventricle * LVEF 55%. * Normal LV chamber size, wall thickness and function. * Indeterminate diastolic function. Right Ventricle * Normal right ventricular structure and function. Left Atrium * Mildly dilated left atrium. Right Atrium * Normal right atrial size. Aortic Valve * Trileaflet aortic valve. * Mildly sclerotic aortic valve leaflets. * No aortic regurgitation. * No aortic stenosis. Mitral Valve * Normal mitral valve structure and function. * No mitral regurgitation. * No mitral stenosis. Tricuspid Valve * Normal tricuspid valve structure and function. * No tricuspid regurgitation. * Unable to estimate RVSP due to lack of TR jet. Pulmonic Valve * Normal pulmonic valve structure and function. * Trace pulmonic regurgitation. Aorta * Normally sized aortic root. Pericardium * The pericardium appears normal. IVC * Normal IVC dimensions and inspiratory collapse. Pulmonary Artery * Normal visualized portions of the main pulmonary artery. ADDENDUM: 11/07/17 0846 Impressions: LVEF 55%. Normal LV chamber size, wall thickness and function. Indeterminate diastolic function. Normal right ventricular structure and function. Unable to estimate RVSP due to lack of TR jet. No significant valvular dysfunction. Left Ventricular Wall Motion: Rest Echo Findings All wall segments showed normal motion. Findings: Study Quality * Technically sub-optimal due to poor echocardiographic windows. ECG Findings * Atrial fibrillation. Left Ventricle * LVEF 55%. * Normal LV chamber size, wall thickness and function. * Indeterminate diastolic function. Right Ventricle * Normal right ventricular structure and function. Left Atrium * Mildly dilated left atrium. Right Atrium * Normal right atrial size. Aortic Valve * Trileaflet aortic valve. * Mildly sclerotic aortic valve leaflets. * No aortic regurgitation. * No aortic stenosis. Mitral Valve * Normal mitral valve structure and function. * No mitral regurgitation. * No mitral stenosis. Tricuspid Valve * Normal tricuspid valve structure and function. * No tricuspid regurgitation. * Unable to estimate RVSP due to lack of TR jet. Pulmonic Valve * Normal pulmonic valve structure and function. * Trace pulmonic regurgitation. Aorta * Normally sized aortic root. Pericardium * The pericardium appears normal. IVC * The IVC is not well evaluated. Pulmonary Artery * Normal visualized portions of the main pulmonary artery. Consult Discharge Plan - Plan Referrals: Best Perez MD [Primary Care Provider] - - Attending Attestation Performed an independent interview and exam of this patient. I agree with the findings, assessment, and plan of Dr. Hatfield, internal medicine internet programmer. Is doing better. Blood pressure has remained stable since starting hydrocortisone. Would recommend maintaining the dose starting tomorrow. Patient is also on broad-spectrum antibiotics for possible sepsis although I may consider stopping antibiotics tomorrow and observing for a day. We could switch oral antibiotics to complete a seven-day course. No obvious infections is identified and therefore further antibiotics were be ordered depending on his clinical course. All culture data negative thus far. Gen NAD, arouses Skin warm and dry Neck trache in place Lungs - scattered coarse bs anteriorly Ht RRR Abd sfot +BS, NT Ext no sig edema 36 min critical time spent in care and management of this pt. Subseq day vent management <Haylee Hatfield - Last Filed: 11/07/17 18:02> Hospitalist Progress Note - Encounter Date of Encounter: 11/07/17 Time of Encounter: 10:40 - Subjective Interval History: Patient seen and examined in ICU. No acute events overnight. Patient is sleeping comfortably in bed. Nurse reports that patient has gotten better. States that blood pressure has stabilized, hes more alert, and he follows commands. Nurse reports that patient will be transferred to . On exam, patient has tracheostomy on ventilation. He is difficult to arouse, but follows commands. Unable to obtain any history from patient. - Exam Vitals: Temp Pulse Resp BP Pulse Ox 97.9 F 68 12 124/104 100 11/07/17 07:49 11/07/17 10:00 11/07/17 10:00 11/07/17 10:00 11/07/17 10:00 Exam: General: Morbidly obese. Difficult to arouse. No acute distress. Head: atraumatic, normocephalic. Eye: pupils equal and round. Sclera anicteric. EOMI. Neck: tracheostomy. Lungs: On ventilation. Diffuse rhonchi bilaterally. No rales or wheezes. No respiratory distress. No accessory muscle use. Cardiovascular: Normal S1 & S2. No rubs or gallops. No JVD. Pulse regular. Abdomen: Soft. Normal bowel sounds. Nondistended, no rigidity. Nontender. Extremities: No deformity, edema or tenderness, no joint swelling or clubbing. Skin: warm, dry, and intact. - Assessment and Plan (1) Acute encephalopathy Current Visit: Yes Status: Acute Assessment and Plan: On admission, patient was minimally responsive to pain only. Etiology unclear. Hypoxia vs infection vs neurologic. ABG showed mixed respiratory and metabolic alkalosis. Head CT was negative. CTA chest showed LLL atelectasis vs pneumonia. On ventilator support. Consider MRI if clinical status does not improve. Improved now mildly responsive and follows some commands. Continue empiric zosyn and vancomycin (day 2). Monitor renal function and for drug toxicity and dose-adjust antibiotics. Continue to monitor mental status. (2) Acute and chronic respiratory failure Current Visit: No Status: Acute Assessment and Plan: On admission, patient was hypoxic. Possibly secondary to ventilator noncompliance. History of COPD. History of chronic respiratory failure with tracheostomy. Trach mask at daytime , ventilator at night. Patients typical ventilator settings are respiratory rate 14, FiO2 40%, PEEP 10 , tidal vol 350. ABG showed mixed respiratory and metabolic alkalosis. CXR showed bibasilar atelectasis. CTA chest showed LLL atelectasis vs PNA. No PE. Patient given 2 doses acetazolamide on 11/06 to improve alkalosis. Repeat ABG showed pH 7.45, pCO2 52, HCO3 36. Improved. Check Legionella. Check nasal MRSA screen. DuoNebs. Continue antibiotics as above. (3) Hypovolemia Current Visit: Yes Status: Acute Assessment and Plan: On admission, blood pressure 84/53. Possibly secondary to decreased oral intake. Was given 4 boluses of 1L IVF upon arrival. Maintenance IVF LR. Continue IV hydrocortisone. Blood pressure significantly improved. (4) Lactic acidosis Current Visit: Yes Status: Acute Assessment and Plan: On admission, lactic acid 4.4. Unknown etiology. Infection unlikely due to absence of fever, tachycardia, leukocytosis, and clear source of infection. Downtrending. (5) Atrial fibrillation and flutter Current Visit: No Status: Acute Assessment and Plan: History of atrial fibrillation on previous monitor strips. CHADS-Vasc score 1. Echo shows LVEF 55%, no valvular dysfunction. Heart rate controlled. Currently in sinus rhythm. ASA only. (6) Macrocytic anemia Current Visit: No Status: Acute Assessment and Plan: History of macrocytic anemia. On admission, Hb 11.1. Vit B12 is normal at 466. Folate is elevated at 22.3. Today, Hb 10.7. Continue to monitor. (7) DVT prophylaxis Current Visit: Yes Status: Acute Assessment and Plan: Heparin 5000 units subcutaneous twice a day - Time Spent with Patient Total time spent is greater than 50% in coordination of care (as documented) at patient's floor/unit and/or counseling patient: Internal Medicine: Result - Labs CBC & Chem 7: 11/07/17 03:50 11/07/17 03:50 Labs: Short CBC 11/07/17 Range/Units 03:50 WBC 6.3 (4.3-11.1) K/mcL Hgb 10.7 L (12.9-16.9) g/dL Hct 36.7 L (37.5-50.1) % Plt Count 157 (140-400) K/mcL Neutrophils # 4.3 (1.6-8.9) K/mcL BMP 11/07/17 03:50 Sodium 144 Potassium 3.8 Chloride 109 H Carbon Dioxide 29 BUN 8 Creatinine 0.52 L Glucose 140 H Calcium 8.7 - ABG Interpretation ABG results: ABG ABG pH 7.45 pH Units (7.32-7.45) 11/06/17 11:55 ABG pCO2 52 mmHg (35-45) H 11/06/17 11:55 ABG pO2 84 mmHg (85-104) L 11/06/17 11:55 ABG O2 Saturation 97 % (95-98) 11/06/17 11:55 PT/INR, D-dimer PT 12.6 Seconds (9.4-12.1) H 11/06/17 02:59 - Impressions Impressions Echocardiogram 11/06/17 02:43 Impressions: LVEF 55%. Normal LV chamber size, wall thickness and function. Indeterminate diastolic function. Normal right ventricular structure and function. Unable to estimate RVSP due to lack of TR jet. No significant valvular dysfunction. Left Ventricular Wall Motion: Rest Echo Findings All wall segments showed normal motion. Findings: Study Quality * Technically sub-optimal due to poor echocardiographic windows. ECG Findings * Atrial fibrillation. Left Ventricle * LVEF 55%. * Normal LV chamber size, wall thickness and function. * Indeterminate diastolic function. Right Ventricle * Normal right ventricular structure and function. Left Atrium * Mildly dilated left atrium. Right Atrium * Normal right atrial size. Aortic Valve * Trileaflet aortic valve. * Mildly sclerotic aortic valve leaflets. * No aortic regurgitation. * No aortic stenosis. Mitral Valve * Normal mitral valve structure and function. * No mitral regurgitation. * No mitral stenosis. Tricuspid Valve * Normal tricuspid valve structure and function. * No tricuspid regurgitation. * Unable to estimate RVSP due to lack of TR jet. Pulmonic Valve * Normal pulmonic valve structure and function. * Trace pulmonic regurgitation. Aorta * Normally sized aortic root. Pericardium * The pericardium appears normal. IVC * Normal IVC dimensions and inspiratory collapse. Pulmonary Artery * Normal visualized portions of the main pulmonary artery. ADDENDUM: 11/07/17 0846 Impressions: LVEF 55%. Normal LV chamber size, wall thickness and function. Indeterminate diastolic function. Normal right ventricular structure and function. Unable to estimate RVSP due to lack of TR jet. No significant valvular dysfunction. Left Ventricular Wall Motion: Rest Echo Findings All wall segments showed normal motion. Findings: Study Quality * Technically sub-optimal due to poor echocardiographic windows. ECG Findings * Atrial fibrillation. Left Ventricle * LVEF 55%. * Normal LV chamber size, wall thickness and function. * Indeterminate diastolic function. Right Ventricle * Normal right ventricular structure and function. Left Atrium * Mildly dilated left atrium. Right Atrium * Normal right atrial size. Aortic Valve * Trileaflet aortic valve. * Mildly sclerotic aortic valve leaflets. * No aortic regurgitation. * No aortic stenosis. Mitral Valve * Normal mitral valve structure and function. * No mitral regurgitation. * No mitral stenosis. Tricuspid Valve * Normal tricuspid valve structure and function. * No tricuspid regurgitation. * Unable to estimate RVSP due to lack of TR jet. Pulmonic Valve * Normal pulmonic valve structure and function. * Trace pulmonic regurgitation. Aorta * Normally sized aortic root. Pericardium * The pericardium appears normal. IVC * The IVC is not well evaluated. Pulmonary Artery * Normal visualized portions of the main pulmonary artery. <Isai Scott - Last Filed: 11/07/17 15:33> (2) Acute and chronic respiratory failure Qualifiers: Respiratory failure complication: hypoxia Qualified Code(s): J96.21 - Acute and chronic respiratory failure with hypoxia <Haylee Hatfield - Last Filed: 11/07/17 18:02> (2) Acute and chronic respiratory failure Qualifiers: Respiratory failure complication: hypoxia Qualified Code(s): J96.21 - Acute and chronic respiratory failure with hypoxia
[2017-11-07] MEDS ORDERED: Hydrocortisone Sodium Succ 100 MG/2 ML VIAL IVP SCH (11:39)
[2017-11-07] MEDS ORDERED: Artificial Tears SOLN 15 ML BOTTLE BOTH EYES PRN ×2 (11:44→15:37)
[2017-11-07] MEDS ORDERED: Artificial Tears SOLN 15 ML BOTTLE BOTH EYES SCH (12:00)
[2017-11-07] MEDS ORDERED: Piperacillin/Tazobactam 3.375 GM in 0.9 % Sodium Chloride Mini Bag 100 ML IVPB SCH (14:00)
[2017-11-07] MEDS: Ipratropium/Albuterol Neb 3 ML IH SCH ×4 (15:29→23:09)
[2017-11-07] MEDS ORDERED: Naloxone 0.4 MG/ML INJ IVP PRN (15:37)
[2017-11-07] MEDS ORDERED: Acetaminophen 325 MG TABLET PO PRN (15:37)
[2017-11-07] MEDS ORDERED: Ondansetron 4 MG/2 ML VIAL IVP PRN (15:37)
[2017-11-07] MEDS ORDERED: Ipratropium/Albuterol Neb 3 ML IH SCH (16:00)
[2017-11-07] MEDS: Artificial Tears SOLN 15 ML BOTTLE BOTH EYES SCH ×2 (18:07→20:38)
[2017-11-07] MEDS: Chlorhexidine Rinse 15 ML MOUTHWASH MM SCH (20:29)
[2017-11-07] MEDS ORDERED: Chlorhexidine Rinse 15 ML MOUTHWASH MM SCH (21:00)
[2017-11-07] MEDS: Acetylcysteine 10% 2 ML INHSOL IH SCH (23:09)
[2017-11-08] MEDS ORDERED: *HR* LORazepam 2 MG/ML VIAL IVP ONE (00:07)
[2017-11-08] MEDS: Artificial Tears SOLN 15 ML BOTTLE BOTH EYES SCH ×6 (00:12→19:59)
[2017-11-08] MEDS: Hydrocortisone Sodium Succ 100 MG/2 ML VIAL IVP SCH (00:35)
[2017-11-08] MEDS: Ipratropium/Albuterol Neb 3 ML IH SCH ×4 (05:15→21:48)
[2017-11-08] MEDS: Acetylcysteine 10% 2 ML INHSOL IH SCH ×4 (05:15→21:48)
[2017-11-08] MEDS: *HR* Heparin 5,000 UNIT/ML VIAL SQ SCH ×3 (05:20→22:19)
[2017-11-08] MEDS: Piperacillin/Tazobactam 3.375 GM in 0.9 % Sodium Chloride Mini Bag 100 ML IVPB SCH ×3 (05:20→22:06)
[2017-11-08] MEDS: Chlorhexidine Rinse 15 ML MOUTHWASH MM SCH ×2 (08:36→19:59)
--- NOTE | 2017-11-08 09:38 | Internal Med Progress Note ---
<Haylee Hatfield - Last Filed: 11/08/17 13:38> Hospitalist Progress Note - Encounter Date of Encounter: 11/08/17 Time of Encounter: 08:00 - Subjective Interval History: Patient seen and examine. No acute events overnight. Nurse reports that patient s mental status has improved. She reports that patient is refusing bloodwork and swallow study. On visit with patient, patient is sleeping comfortably in bed. He is on ventilation. Patient is calm, alert and oriented x3. He communicates with head nodding/shaking, mouthing words, and writing. He cannot speak at this time because speaking valve cannot be used with ventilation. Patient denies any complaints at this time. Admits cough that is dry. Denies any difficulty breathing. Denies chest pain. Denies abdominal pain. Spoke with patient and he agrees to cooperate with swallow study and bloodwork. - Exam Vitals: Temp Pulse Resp BP Pulse Ox 99.5 F 108 17 117/71 100 11/08/17 06:45 11/08/17 06:45 11/08/17 08:58 11/08/17 08:58 11/08/17 08:58 Exam: General: Morbidly obese. Alert and oriented x3. No acute distress. Head: atraumatic, normocephalic. Eye: pupils equal and round. Sclera anicteric. EOMI. Mouth: oral mucosa moist. Normal oropharynx. Neck: tracheostomy. Lungs: On ventilation. CTAB. No rhonchi, rales or wheezes. No respiratory distress. No accessory muscle use. Cardiovascular: Normal S1 & S2. No rubs or gallops. No JVD. Pulse regular. Abdomen: Soft. Normal bowel sounds. Nondistended, no rigidity. Nontender. Extremities: No deformity, edema or tenderness, no joint swelling or clubbing. Skin: warm, dry, and intact. - Assessment and Plan (1) Acute encephalopathy Current Visit: Yes Status: Acute Assessment and Plan: On admission, patient was minimally responsive to pain only. Likely secondary to hypoxia. Also considered infectious and neurologic etiology. ABG showed mixed respiratory and metabolic alkalosis. Head CT was negative. CTA chest showed LLL atelectasis vs pneumonia. Resolved. Now alert and oriented x3. Discontinue vancomycin due to negative MRSA screen. Continue zosyn (day 3) due to high risk of aspiration pneumonia. Consider transition to augmentin PO tomorrow. Anticipate discharge tomorrow. (2) Acute and chronic respiratory failure Current Visit: No Status: Acute Assessment and Plan: On admission, patient was hypoxic. Possibly secondary to ventilator noncompliance. History of chronic respiratory failure with tracheostomy. Trach collar at daytime, ventilator at night. Patients typical ventilator settings are respiratory rate 14, FiO2 40%, PEEP 10 , tidal vol 350. On admission, ABG showed mixed respiratory and metabolic alkalosis. After improvement of oxygen saturation and 2 doses of acetazolamide, repeat ABG showed pH 7.45, pCO2 52, HCO3 36. Legionella was negative. Nasal MRSA screen was negative. CXR showed bibasilar atelectasis. CTA chest showed LLL atelectasis vs PNA. No PE. Improved. Weaned off full-time ventilation to patients baseline - trach collar at daytime and ventilator at night. DuoNebs. Continue antibiotics as above. (3) Hypovolemia Current Visit: Yes Status: Acute Assessment and Plan: On admission, blood pressure 84/53. Possibly secondary to decreased oral intake. Was given 4 boluses of 1L IVF upon arrival. Was given IV hydrocortisone with significant improvement of blood pressure. Blood pressure stable. Transition from IV hydrocortisone with prednisone 40 PO. (4) Atrial fibrillation and flutter Current Visit: No Status: Chronic Assessment and Plan: History of atrial fibrillation on previous monitor strips. CHADS-Vasc score 1. Echo shows LVEF 55%, no valvular dysfunction. Heart rate controlled. Currently in sinus rhythm. ASA. (5) Macrocytic anemia Current Visit: No Status: Chronic Assessment and Plan: History of macrocytic anemia. On admission, Hb 11.1. Vit B12 is normal at 466. Folate is elevated at 22.3. Today, Hb 10.3. Continue to monitor. (6) DVT prophylaxis Current Visit: Yes Status: Acute Assessment and Plan: Heparin 5000 units subcutaneous twice a day (7) Lactic acidosis Current Visit: Yes Status: Resolved Assessment and Plan: On admission, lactic acid 4.4. Unknown etiology. Infection unlikely due to absence of fever, tachycardia, leukocytosis, and clear source of infection. Downtrended. - Time Spent with Patient Total time spent is greater than 50% in coordination of care (as documented) at patient's floor/unit and/or counseling patient: Internal Medicine: Result - Labs CBC & Chem 7: 11/08/17 09:53 11/08/17 09:53 - ABG Interpretation ABG results: ABG ABG pH 7.45 pH Units (7.32-7.45) 11/06/17 11:55 ABG pCO2 52 mmHg (35-45) H 11/06/17 11:55 ABG pO2 84 mmHg (85-104) L 11/06/17 11:55 ABG O2 Saturation 97 % (95-98) 11/06/17 11:55 PT/INR, D-dimer PT 12.6 Seconds (9.4-12.1) H 11/06/17 02:59 Consult Discharge Plan - Plan Referrals: Best Perez MD [Primary Care Provider] - (Patient is from [facility], no PCP appointment is needed) <Tang Nesbitt - Last Filed: 11/08/17 17:36> Hospitalist Progress Note - Encounter Date of Encounter: 11/08/17 - Exam Vitals: Temp Pulse Resp BP Pulse Ox 98.2 F 74 16 116/80 100 11/08/17 16:10 11/08/17 16:10 11/08/17 16:10 11/08/17 16:10 11/08/17 16:10 - Assessment and Plan (1) Macrocytic anemia Current Visit: No Status: Chronic (2) Acute and chronic respiratory failure Current Visit: No Status: Acute (3) Atrial fibrillation and flutter Current Visit: No Status: Chronic (4) Acute encephalopathy Current Visit: Yes Status: Acute (5) DVT prophylaxis Current Visit: Yes Status: Acute (6) Hypovolemia Current Visit: Yes Status: Acute (7) Lactic acidosis Current Visit: Yes Status: Resolved - Time Spent with Patient Total time spent is greater than 50% in coordination of care (as documented) at patient's floor/unit and/or counseling patient: Internal Medicine: Result - Labs CBC & Chem 7: 11/08/17 09:53 11/08/17 09:53 Labs: Short CBC 11/08/17 Range/Units 09:53 WBC 5.6 (4.3-11.1) K/mcL Hgb 10.3 L (12.9-16.9) g/dL Hct 34.1 L (37.5-50.1) % Plt Count 158 (140-400) K/mcL Neutrophils # 3.1 (1.6-8.9) K/mcL BMP 11/08/17 09:53 Sodium 147 H Potassium 2.2 L* Chloride 110 H Carbon Dioxide 27 BUN 7 Creatinine 0.71 Glucose 173 H Calcium 8.7 - ABG Interpretation ABG results: ABG ABG pH 7.45 pH Units (7.32-7.45) 11/06/17 11:55 ABG pCO2 52 mmHg (35-45) H 11/06/17 11:55 ABG pO2 84 mmHg (85-104) L 11/06/17 11:55 ABG O2 Saturation 97 % (95-98) 11/06/17 11:55 PT/INR, D-dimer PT 12.6 Seconds (9.4-12.1) H 11/06/17 02:59 - Attending Attestation I examined this patient and my medical decision-making was reviewed with the Resident Physician Dr. Hatfield. I agree with the documented findings, disposition and treatment plan as described except to the extent set forth below. Mr. Mckeon is a 47 year old male with history of chronic respiratory failure with tracheostomy, COPD presents from [place] [facility] due to acute hypoxia and unresponsiveness. Pt was placed on Vent and started on broad spec abx Zosyn and Vanc. His mentation improved now. He did well with swallow study too. So will switch him back to regular regimen to NC during day time Vent at night time. He is alert, awake and O x 3. Denied any CP. Still has diarrhea. However his C. Diff came back as negative. a/p 1. Acute metabolic encephaloapthy 2. Acute on chronic hypoxic and hypercapneic resp failure 3. Acute COPD exacerbation 4. Sepsis with PNA 5. Bacterial PNA cont empirical abx Zosyn Switched to PO steroids cont Duoneb diet as per speech recommendations possible d/c back to ECF in AM <Haylee Hatfield - Last Filed: 11/08/17 13:38> (2) Acute and chronic respiratory failure Qualifiers: Respiratory failure complication: hypoxia Qualified Code(s): J96.21 - Acute and chronic respiratory failure with hypoxia <Tang Nesbitt - Last Filed: 11/08/17 17:36> (2) Acute and chronic respiratory failure Qualifiers: Respiratory failure complication: hypoxia Qualified Code(s): J96.21 - Acute and chronic respiratory failure with hypoxia
[2017-11-08 10:13] LABS: Basophils % 0.4 %; Eosinophils % 0.2 %; Hematocrit 34.1 % (37.5-50.1); Hemoglobin 10.3 g/dL (12.9-16.9); Immature Granulocytes % 1.6 % (0-4); Lymphocytes # 1.9 K/mcL (0.6-4.6); Lymphocytes % 34.1 %; Mean Corpuscular HGB Conc 30.2 g/dL (31.6-35.5); Mean Corpuscular Hemoglobin 28.8 pg (28.0-33.3); Mean Corpuscular Volume 95.3 fL (83.0-100.0); Mean Platelet Volume 9.8 fL (9.4-12.4); Monocytes # 0.4 K/mcL (0.0-1.3); Monocytes % 7.4 %; Neutrophils # 3.1 K/mcL (1.6-8.9); Nucleated Red Blood Cells 0.5 /100 WBC (0); Platelet Count 158 K/mcL (140-400); Red Blood Count 3.58 M/mcL (4.19-5.50); Red Cell Distribution Width 16.4 % (11.5-14.5); Segmented Neutrophils % 56.3 %
[2017-11-08 10:42] LABS: BUN/Creatinine Ratio 10 (6-26); Blood Urea Nitrogen 7 mg/dL (6-20); Calcium 8.7 mg/dL (8.6-10.3); Carbon Dioxide 27 mEq/L (23-29); Chloride 110 mEq/L (98-107); Glucose 173 mg/dL (70-105); Osmolality,Calculated 306 (280-300); Potassium 2.2 mEq/L (3.5-5.1); Sodium 147 mEq/L (136-145); eGFR For Non-African Americans > 60 (> 60)
[2017-11-09] MEDS: Artificial Tears SOLN 15 ML BOTTLE BOTH EYES SCH ×4 (00:44→11:06)
[2017-11-09] MEDS: Ipratropium/Albuterol Neb 3 ML IH SCH ×4 (03:56→21:06)
[2017-11-09] MEDS: Acetylcysteine 10% 2 ML INHSOL IH SCH ×4 (03:56→21:06)
[2017-11-09] MEDS: Piperacillin/Tazobactam 3.375 GM in 0.9 % Sodium Chloride Mini Bag 100 ML IVPB SCH (05:42)
[2017-11-09] MEDS: *HR* Heparin 5,000 UNIT/ML VIAL SQ SCH ×3 (05:43→20:40)
[2017-11-09 06:01] LABS: Basophils % 0.5 %
[2017-11-09 06:03] LABS: Eosinophils # 0.1 K/mcL (0.0-0.6); Eosinophils % 1.6 %; Hematocrit 37.8 % (37.5-50.1); Hemoglobin 10.8 g/dL (12.9-16.9); Immature Granulocytes % 1.4 % (0-4); Lymphocytes % 31.1 %; Mean Corpuscular HGB Conc 28.6 g/dL (31.6-35.5); Mean Corpuscular Hemoglobin 28.6 pg (28.0-33.3); Mean Platelet Volume 10.2 fL (9.4-12.4); Monocytes # 0.5 K/mcL (0.0-1.3); Neutrophils # 3.7 K/mcL (1.6-8.9); Nucleated Red Blood Cells 0.5 /100 WBC (0); Platelet Count 172 K/mcL (140-400); Red Blood Count 3.78 M/mcL (4.19-5.50); Red Cell Distribution Width 17.1 % (11.5-14.5); Segmented Neutrophils % 57.4 %
[2017-11-09 06:43] LABS: Anisocytosis 1+ (Not Present); Macrocytosis Present (Not Present); Platelet Estimate Normal (Normal); Polychromasia 1+ (Not Present)
[2017-11-09] MEDS: Chlorhexidine Rinse 15 ML MOUTHWASH MM SCH ×2 (08:29→20:21)
[2017-11-09] MEDS: predniSONE 20 MG TABLET PO SCH (08:29)
[2017-11-09 09:49] LABS: BUN/Creatinine Ratio 6 (6-26); Blood Urea Nitrogen 4 mg/dL (6-20); Calcium 8.9 mg/dL (8.6-10.3); Carbon Dioxide 31 mEq/L (23-29); Chloride 111 mEq/L (98-107); Glucose 139 mg/dL (70-105); Osmolality,Calculated 307 (280-300); Potassium 3.7 mEq/L (3.5-5.1); Sodium 149 mEq/L (136-145); eGFR For Non-African Americans > 60 (> 60)
--- NOTE | 2017-11-09 10:23 | Internal Med Progress Note ---
<Haylee Hatfield - Last Filed: 11/09/17 11:34> Hospitalist Progress Note - Encounter Date of Encounter: 11/09/17 Time of Encounter: 09:10 - Subjective Interval History: Patient seen and examine. No acute events overnight. Patient is resting comfortably in bed. He is on trach collar. Patient is calm, alert and oriented x3. Today, he communicates by speaking with speaking valve. Patient states hes ok. Patient denies any complaints at this time and states he feels back to normal. Admits cough that is baseline for him. Denies any difficulty breathing. Denies chest pain. Denies abdominal pain. Denies fever, chills. Denies nausea/ vomiting, diarrhea/constipation. - Exam Vitals: Temp Pulse Resp BP Pulse Ox 98.5 F 74 19 120/80 100 11/09/17 07:18 11/09/17 07:18 11/09/17 07:18 11/09/17 07:18 11/09/17 07:18 Exam: General: Morbidly obese. Alert and oriented x3. No acute distress. Head: atraumatic, normocephalic. Eye: pupils equal and round. Sclera anicteric. EOMI. Mouth: oral mucosa moist. Normal oropharynx. Neck: tracheostomy. Lungs: On trach collar. CTAB. No rhonchi, rales or wheezes. No respiratory distress. No accessory muscle use. Cardiovascular: Normal S1 & S2. No rubs or gallops. No JVD. Pulse regular. Abdomen: Soft. Normal bowel sounds. Nondistended, no rigidity. Nontender. Extremities: No deformity, edema or tenderness, no joint swelling or clubbing. Skin: warm, dry, and intact. - Assessment and Plan (1) Acute encephalopathy Current Visit: Yes Status: Resolved Assessment and Plan: On admission, patient was minimally responsive to pain only. Likely secondary to hypoxia. Also considered infectious and neurologic etiology. ABG showed mixed respiratory and metabolic alkalosis. Head CT was negative. CTA chest showed LLL atelectasis vs pneumonia. Resolved. Now alert and oriented x3. Vancomycin discontinued due to negative MRSA screen. De-escalate zosyn (day 4) to augmentin PO. Abx therapy due to high risk of aspiration pneumonia. Anticipate discharge tomorrow. (2) Acute and chronic respiratory failure Current Visit: No Status: Acute Assessment and Plan: On admission, patient was hypoxic. Possibly secondary to ventilator noncompliance. History of chronic respiratory failure with tracheostomy. Trach collar at daytime, ventilator at night. Patients typical ventilator settings are respiratory rate 14, FiO2 40%, PEEP 10 , tidal vol 350. On admission, ABG showed mixed respiratory and metabolic alkalosis. After improvement of oxygen saturation and 2 doses of acetazolamide, repeat ABG showed pH 7.45, pCO2 52, HCO3 36. Legionella was negative. Nasal MRSA screen was negative. CXR showed bibasilar atelectasis. CTA chest showed LLL atelectasis vs PNA. No PE. Improved. Weaned off full-time ventilation to patients baseline - trach collar at daytime and ventilator at night. DuoNebs. Continue antibiotics as above. (3) Hypovolemia Current Visit: Yes Status: Resolved Assessment and Plan: On admission, blood pressure 84/53. Possibly secondary to decreased oral intake. Was given 4 boluses of 1L IVF upon arrival. Was given IV hydrocortisone with significant improvement of blood pressure. Transitioned to prednisone 40 PO. Blood pressure stable. Continue prednisone 40 PO. (4) Atrial fibrillation and flutter Current Visit: No Status: Chronic Assessment and Plan: History of atrial fibrillation on previous monitor strips. CHADS-Vasc score 1. Echo shows LVEF 55%, no valvular dysfunction. Heart rate controlled. Currently in A-fib, no RVR. ASA. (5) Macrocytic anemia Current Visit: No Status: Chronic Assessment and Plan: History of macrocytic anemia. On admission, Hb 11.1. Vit B12 is normal at 466. Folate is elevated at 22.3. Today, Hb 10.8. Continue to monitor. (6) DVT prophylaxis Current Visit: Yes Status: Acute Assessment and Plan: Heparin 5000 units subcutaneous twice a day (7) Lactic acidosis Current Visit: Yes Status: Resolved Assessment and Plan: On admission, lactic acid 4.4. Unknown etiology. Infection unlikely due to absence of fever, tachycardia, leukocytosis, and clear source of infection. Downtrended. - Time Spent with Patient Total time spent is greater than 50% in coordination of care (as documented) at patient's floor/unit and/or counseling patient: Internal Medicine: Result - Labs CBC & Chem 7: 11/09/17 04:56 11/09/17 09:04 Labs: Short CBC 11/09/17 Range/Units 04:56 WBC 6.4 (4.3-11.1) K/mcL Hgb 10.8 L (12.9-16.9) g/dL Hct 37.8 (37.5-50.1) % Plt Count 172 (140-400) K/mcL Neutrophils # 3.7 (1.6-8.9) K/mcL BMP 11/08/17 11/08/17 11/09/17 09:53 22:04 09:04 Sodium 147 H 149 H Potassium 2.2 L* 3.1 L D 3.7 Chloride 110 H 111 H Carbon Dioxide 27 31 H BUN 7 4 L Creatinine 0.71 0.71 Glucose 173 H 139 H Calcium 8.7 8.9 - ABG Interpretation ABG results: ABG ABG pH 7.45 pH Units (7.32-7.45) 11/06/17 11:55 ABG pCO2 52 mmHg (35-45) H 11/06/17 11:55 ABG pO2 84 mmHg (85-104) L 11/06/17 11:55 ABG O2 Saturation 97 % (95-98) 11/06/17 11:55 PT/INR, D-dimer PT 12.6 Seconds (9.4-12.1) H 11/06/17 02:59 Consult Discharge Plan - Plan Referrals: Best Perez MD [Primary Care Provider] - (Patient is from [facility], no PCP appointment is needed) <Tang Nesbitt - Last Filed: 11/09/17 16:35> Hospitalist Progress Note - Encounter Date of Encounter: 11/09/17 - Exam Vitals: Temp Pulse Resp BP Pulse Ox 98.2 F 83 19 127/96 96 11/09/17 10:54 11/09/17 10:54 11/09/17 10:54 11/09/17 10:54 11/09/17 10:54 - Assessment and Plan (1) Macrocytic anemia Current Visit: No Status: Chronic (2) Acute and chronic respiratory failure Current Visit: No Status: Acute (3) Atrial fibrillation and flutter Current Visit: No Status: Chronic (4) Acute encephalopathy Current Visit: Yes Status: Resolved (5) DVT prophylaxis Current Visit: Yes Status: Acute (6) Hypovolemia Current Visit: Yes Status: Resolved (7) Lactic acidosis Current Visit: Yes Status: Resolved - Time Spent with Patient Total time spent is greater than 50% in coordination of care (as documented) at patient's floor/unit and/or counseling patient: Internal Medicine: Result - Labs CBC & Chem 7: 11/09/17 04:56 11/09/17 09:04 Labs: Short CBC 11/09/17 Range/Units 04:56 WBC 6.4 (4.3-11.1) K/mcL Hgb 10.8 L (12.9-16.9) g/dL Hct 37.8 (37.5-50.1) % Plt Count 172 (140-400) K/mcL Neutrophils # 3.7 (1.6-8.9) K/mcL BMP 11/08/17 11/09/17 22:04 09:04 Sodium 149 H Potassium 3.1 L D 3.7 Chloride 111 H Carbon Dioxide 31 H BUN 4 L Creatinine 0.71 Glucose 139 H Calcium 8.9 - ABG Interpretation ABG results: ABG ABG pH 7.45 pH Units (7.32-7.45) 11/06/17 11:55 ABG pCO2 52 mmHg (35-45) H 11/06/17 11:55 ABG pO2 84 mmHg (85-104) L 11/06/17 11:55 ABG O2 Saturation 97 % (95-98) 11/06/17 11:55 PT/INR, D-dimer PT 12.6 Seconds (9.4-12.1) H 11/06/17 02:59 - Attending Attestation I examined this patient and my medical decision-making was reviewed with the Resident Physician Dr. Hatfield. I agree with the documented findings, disposition and treatment plan as described except to the extent set forth below. Mr. Mckeon is a 47 year old male with history of chronic respiratory failure with tracheostomy, COPD presents from [place] ED due to acute hypoxia and unresponsiveness. Pt was placed on Vent and started on broad spec abx Zosyn and Vanc. His mentation improved now. He did well with swallow study too. So will switch him back to regular regimen to NC during day time Vent at night time. He is alert, awake and O x 3. Denied any CP. Diarrhea improved. a/p 1. Acute metabolic encephaloapthy 2. Acute on chronic hypoxic and hypercapneic resp failure 3. Acute COPD exacerbation 4. Sepsis with PNA 5. Bacterial PNA Improving switched to PO Augmentin today Cont tapering PO steroids cont Duoneb diet as per speech recommendations His NA elevated today due to dehydration started him on D5 water and close monitoring of Na possible d/c back to ECF in AM <Haylee Hatfield - Last Filed: 11/09/17 11:34> (2) Acute and chronic respiratory failure Qualifiers: Respiratory failure complication: hypoxia Qualified Code(s): J96.21 - Acute and chronic respiratory failure with hypoxia <Tang Nesbitt - Last Filed: 11/09/17 16:35> (2) Acute and chronic respiratory failure Qualifiers: Respiratory failure complication: hypoxia Qualified Code(s): J96.21 - Acute and chronic respiratory failure with hypoxia
[2017-11-09] MEDS: D5% in Water 1,000 ML IVC SCH ×2 (10:52→20:40)
[2017-11-09 16:53] LABS: BUN/Creatinine Ratio 9 (6-26); Blood Urea Nitrogen 6 mg/dL (6-20); Calcium 9.1 mg/dL (8.6-10.3); Carbon Dioxide 27 mEq/L (23-29); Chloride 110 mEq/L (98-107); Glucose 188 mg/dL (70-105); Osmolality,Calculated 305 (280-300); Potassium 4.2 mEq/L (3.5-5.1); Sodium 146 mEq/L (136-145); eGFR For Non-African Americans > 60 (> 60)
[2017-11-10] MEDS: Acetylcysteine 10% 2 ML INHSOL IH SCH ×2 (03:25→10:53)
[2017-11-10] MEDS: Ipratropium/Albuterol Neb 3 ML IH SCH ×2 (03:25→10:53)
[2017-11-10] MEDS: *HR* Heparin 5,000 UNIT/ML VIAL SQ SCH (04:22)
[2017-11-10 04:37] LABS: Basophils % 0.2 %; Hemoglobin 10.2 g/dL (12.9-16.9); Immature Granulocytes % 0.9 % (0-4)
[2017-11-10 04:39] LABS: Eosinophils % 0.5 %; Hematocrit 34.7 % (37.5-50.1); Lymphocytes # 2.1 K/mcL (0.6-4.6); Lymphocytes % 23.9 %; Mean Corpuscular HGB Conc 29.4 g/dL (31.6-35.5); Mean Corpuscular Hemoglobin 28.9 pg (28.0-33.3); Mean Corpuscular Volume 98.3 fL (83.0-100.0); Mean Platelet Volume 9.7 fL (9.4-12.4); Monocytes # 0.5 K/mcL (0.0-1.3); Monocytes % 5.7 %; Platelet Count 157 K/mcL (140-400); Red Blood Count 3.53 M/mcL (4.19-5.50); Red Cell Distribution Width 16.6 % (11.5-14.5); Segmented Neutrophils % 68.8 %
[2017-11-10 04:50] LABS: Neutrophils # 6.1 K/mcL (1.6-8.9)
[2017-11-10 05:02] LABS: BUN/Creatinine Ratio 9 (6-26); Blood Urea Nitrogen 5 mg/dL (6-20); Calcium 8.9 mg/dL (8.6-10.3); Carbon Dioxide 26 mEq/L (23-29); Chloride 111 mEq/L (98-107); Glucose 146 mg/dL (70-105); Osmolality,Calculated 302 (280-300); Sodium 146 mEq/L (136-145); eGFR For Non-African Americans > 60 (> 60)
[2017-11-10 05:54] LABS: Anisocytosis 1+ (Not Present); Platelet Estimate Normal (Normal)
[2017-11-10] MEDS: D5% in Water 1,000 ML IVC SCH (06:29)
[2017-11-10 07:50] VITALS: BP 103/77
[2017-11-10] MEDS: predniSONE 20 MG TABLET PO SCH (08:18)
[2017-11-10] MEDS: Chlorhexidine Rinse 15 ML MOUTHWASH MM SCH (08:19)
--- NOTE | 2017-11-10 08:26 | Discharge Summary ---
<Haylee Hatfield - Last Filed: 11/10/17 08:23> - NOTES TO OUTPATIENT PROVIDER Notes to Outpatient Provider: Developed hypernatremia 149, came down to 146 after D5 in water. Also recurrent hypokalemia during hospital stay, corrected with KCl repletion. Patient was asymptomatic. Recommend hold diuretics (bumex). Recommend followup BMP in 3 days. Encourage oral fluid intake. Orders not resulted at time of discharge: Pending orders 11/06/17 08:42 Culture,Blood [BC] Routine Date of Encounter: 11/10/17 Time of Encounter: 07:30 - Discharge Diagnosis (1) Acute encephalopathy Priority: Primary Status: Resolved (2) Acute and chronic respiratory failure Priority: Primary Status: Acute Qualifiers: Respiratory failure complication: hypoxia Qualified Code(s): J96.21 - Acute and chronic respiratory failure with hypoxia (3) Hypovolemia Priority: Primary Status: Resolved (4) Atrial fibrillation and flutter Priority: Secondary Status: Chronic (5) Macrocytic anemia Priority: Secondary Status: Chronic (6) DVT prophylaxis Priority: Secondary Status: Acute (7) Lactic acidosis Priority: Secondary Status: Resolved Hospital course: Mr. Mckeon is a 47 year old male with history of chronic respiratory failure with tracheostomy, COPD, HTN, HLD, PAD, and GERD. Patient is a resident at an [facility] and was found unresponsive with oxygen saturation in the 50s. Patient required bagging support to eventually get his oxygen saturation to acceptable levels. Upon arrival to the intensive care unit the patient was minimally responsive to pain only. He did not appear to be in any acute distress. Patient was febrile with hypotension and bradypnea. Heart rate was normal. CBC was unremarkable. CMP was significant for elevated bicarb. Lactic acid was elevated. ABG showed mixed respiratory and metabolic alkalosis. UA was negative. CXR showed bibasilar atelectasis. CTA chest showed LLL atelectasis vs pneumonia. No PE. Head CT was negative. Echo showed LVEF 55% with normal LV/RV function and no valvular dysfunction. Oxygen saturation was optimized. And 2 doses of acetazolamide were given for alkalosis. Repeat ABG showed normalized pH. Blood pressure stabilized after IVF and hydrocortisone. Patient was on full-time ventilation in ICU. Patients mental status improved and he was transferred to the floor. Additional labs showed normal vitB12, elevated folate, negative C.diff, and negative Legionella. Patient was placed on empiric vanc and zosyn. Vanc was discontinued after negative MRSA screen. Zosyn was continued due to high risk of aspiration pneumonia. Swallow study was normal. Patients acute encephalopathy was likely secondary to hypoxia. Patients acute encephalopathy and hypoxia resolved. And patient was de-escalated from second time worker ventilation to his baseline: trach collar at daytime and ventilator at night. On 10/10, patient had hypernatremia 149, he was asymptomatic. Suspected secondary to poor oral intake. D5 in water was started and Na came down to 146. Patient also had recurrent hypokalemia that normalized with potassium repletion. Today, patient is resting comfortably in bed. He is on trach collar. Patient is calm, alert and oriented x3. Today, he communicates by speaking with speaking valve. Patient states hes ok. Patient denies any complaints at this time and states he feels back to normal. Admits cough that is baseline for him. Denies any difficulty breathing. Denies chest pain. Denies abdominal pain. Denies fever , chills. Denies nausea/vomiting, diarrhea/constipation. - Time Spent with Patient Total time spent providing and/or coordinating discharge services: Greater than 30 minutes (42 minutes) - Discharge Medications Prescriptions: Amoxicillin/Clavulanate [Augmentin] 875 mg PO BIDWM #5 tablet Metoprolol [Lopressor] 12.5 mg PO BID #60 tablet predniSONE [PredniSONE] See Taper PO DAILY #21 tablet Home Medications: Atorvastatin [Lipitor] 80 mg PO HS 08/17/17 [History] Escitalopram Oxalate 5 mg PO DAILY 08/17/17 [History] Folic Acid 1 mg PO DAILY 08/17/17 [History] Ipratropium/Albuterol Neb [Duoneb] 3 ml IH Q6HR 08/17/17 [History] Tramadol HCl [Ultram] 50 mg PO TID PRN 08/17/17 [History] Aspirin 81 mg PO DAILY tab.chew 08/18/17 [Rx] Bumetanide [Bumex] 0.5 mg PO DAILY 365 Days tablet 08/18/17 [Rx] Gabapentin [Neurontin] 400 mg PO TID 30 Days #90 capsule 08/18/17 [Rx] Lactobacillus [Culturelle] 1 each PO BID 3 Days cap.sprink 08/18/17 [Rx] Docusate [Colace] 100 mg PO TID 09/04/17 [History] Multivit-Min/Iron Fum/Folic AC [Ldrvc-Zzilvyb-Zpeitdxk Tablet] 1 each PO DAILY 09/04/17 [History] Scopolamine Patch [Transderm-Scop] 1.5 mg TD Q72H 09/04/17 [History] Sennosides [Senna] 8.6 mg PO TID 09/04/17 [History] Acetaminophen [Tylenol] 650 mg PO Q6H PRN 11/05/17 [History] Bisacodyl [Dulcolax] 10 mg PO DAILY PRN 11/05/17 [History] Simethicone [Bicarsim] 80 mg PO PRN PRN 11/05/17 [History] Potassium Chloride [K-Tab ER] 20 meq PO DAILY 11/06/17 [History] Amoxicillin/Clavulanate [Augmentin] 875 mg PO BIDWM #5 tablet 11/10/17 [Rx] Metoprolol [Lopressor] 12.5 mg PO BID #60 tablet 11/10/17 [Rx] predniSONE [PredniSONE] 40 mg PO DAILY #0 tablet 11/10/17 [Rx] predniSONE [PredniSONE] See Taper PO DAILY #21 tablet 11/10/17 [Rx] Allergies/Adverse Reactions: 3 Allergy/AdvReac Type Severity Reaction Status Date / Time No Known Allergies Allergy Verified 09/04/17 21:39 Date of admission: 11/06/17 03:03 Primary care physician: Best Perez MD Consults: 11/06/17 03:21 Consult to Critical Care [CONS] Routine Consulting Provider: [facility] Reason for Consult: Hypoxic respiratory failure, chronic trach Call Completed: Yes Discharging clinician: Haylee Hatfield Anticipated date of discharge: 11/10/17 - Constitutional Vitals: Temp Pulse Resp BP Pulse Ox 98.7 F 87 18 103/77 98 11/10/17 07:48 11/10/17 07:48 11/10/17 07:48 11/10/17 07:48 11/10/17 07:48 General appearance: Present: A&O X 0 Exam: General: Morbidly obese. Alert and oriented x3. No acute distress. Head: atraumatic, normocephalic. Eye: pupils equal and round. Sclera anicteric. EOMI. Mouth: oral mucosa moist. Normal oropharynx. Neck: tracheostomy. Lungs: On trach collar. CTAB. No rhonchi, rales or wheezes. No respiratory distress. No accessory muscle use. Cardiovascular: Normal S1 & S2. No rubs or gallops. No JVD. Pulse regular. Abdomen: Soft. Normal bowel sounds. Nondistended, no rigidity. Nontender. Extremities: No deformity, edema or tenderness, no joint swelling or clubbing. Skin: warm, dry, and intact. - Patient Status Disposition: Transfer SNF Condition: Fair - Discharge Instructions Instructions: Atrial Fibrillation (DC), Acute Respiratory Distress Syndrome (DC ), Chronic Obstructive Pulmonary Disease (DC) Follow Up With: Best Perez MD [Primary Care Provider] - (Patient is from [facility], no PCP appointment is needed) Additional Instructions: Encourage oral hydration to decrease future risk of hypernatremia. - Diet and Activity Activity: increase activity as tolerated Diet: advance to your usual diet <Tang Nesbitt - Last Filed: 11/10/17 14:37> Orders not resulted at time of discharge: Pending orders 11/06/17 08:42 Culture,Blood [BC] Routine Date of Encounter: 11/10/17 - Discharge Diagnosis (1) Macrocytic anemia Status: Chronic (2) Acute and chronic respiratory failure Status: Acute Qualifiers: Respiratory failure complication: hypoxia Qualified Code(s): J96.21 - Acute and chronic respiratory failure with hypoxia (3) Atrial fibrillation and flutter Status: Chronic (4) Acute encephalopathy Status: Resolved (5) DVT prophylaxis Status: Acute (6) Hypovolemia Status: Resolved (7) Lactic acidosis Status: Resolved Hospital course: Mr. Mckeon is a 47 year old male - Time Spent with Patient Total time spent providing and/or coordinating discharge services: Date of admission: 11/06/17 03:03 Primary care physician: Best Perez MD Consults: 11/06/17 03:21 Consult to Critical Care [CONS] Routine Consulting Provider: [facility] Reason for Consult: Hypoxic respiratory failure, chronic trach Call Completed: Yes - Constitutional Vitals: Temp Pulse Resp BP Pulse Ox 98.7 F 87 18 103/77 98 11/10/17 07:48 11/10/17 07:48 11/10/17 07:48 11/10/17 07:48 11/10/17 07:48 - Attending Attestation I examined this patient and my medical decision-making was reviewed with the Resident Physician Dr. Hatfield. I agree with the documented findings, disposition and treatment plan as described except to the extent set forth below. Mr. Mckeon is a 47 year old male with history of chronic respiratory failure with tracheostomy, COPD presents from [place] ED due to acute hypoxia and unresponsiveness. Pt was placed on Vent and started on broad spec abx Zosyn and Vanc. His mentation improved now. He did well with swallow study too. So will switch him back to regular regimen to NC during day time Vent at night time. He is alert, awake and O x 3. Denied any CP. Diarrhea improved. a/p 1. Acute metabolic encephaloapthy 2. Acute on chronic hypoxic and hypercapneic resp failure 3. Acute COPD exacerbation 4. Sepsis with PNA 5. Bacterial PNA Improved switched to PO Augmentin today Cont tapering PO steroids cont Duoneb diet as per speech recommendations Na improved to 146 Recommend to have f/u BMP In 2-3 days Medically stable to d/c back to ECF today
--- NOTE | 2017-11-10 09:00 | Physician Discharge Referral ---
ExtendedCare Referral Info Transfer To: [facility] Provider in Charge: Dr. Nesbitt Provider in Charge after Transfer: PCP Institutional Level of Care: Skilled - Diagnosis (1) Acute encephalopathy Priority: Primary Status: Resolved (2) Acute and chronic respiratory failure Priority: Primary Status: Acute (3) Hypovolemia Priority: Primary Status: Resolved (4) Lactic acidosis Priority: Secondary Status: Resolved (5) Atrial fibrillation and flutter Priority: Secondary Status: Chronic (6) Macrocytic anemia Priority: Secondary Status: Chronic (7) DVT prophylaxis Priority: Secondary Status: Acute Prognosis: Good Aware of Diagnosis: Patient Aware of Prognosis: Patient - Transfer Medications Prescriptions: Amoxicillin/Clavulanate [Augmentin] 875 mg PO BIDWM #5 tablet Metoprolol [Lopressor] 12.5 mg PO BID #60 tablet predniSONE [PredniSONE] See Taper PO DAILY #21 tablet Home Medications: Atorvastatin [Lipitor] 80 mg PO HS 08/17/17 [History] Escitalopram Oxalate 5 mg PO DAILY 08/17/17 [History] Folic Acid 1 mg PO DAILY 08/17/17 [History] Ipratropium/Albuterol Neb [Duoneb] 3 ml IH Q6HR 08/17/17 [History] Tramadol HCl [Ultram] 50 mg PO TID PRN 08/17/17 [History] Aspirin 81 mg PO DAILY tab.chew 08/18/17 [Rx] Bumetanide [Bumex] 0.5 mg PO DAILY 365 Days tablet 08/18/17 [Rx] Gabapentin [Neurontin] 400 mg PO TID 30 Days #90 capsule 08/18/17 [Rx] Lactobacillus [Culturelle] 1 each PO BID 3 Days cap.sprink 08/18/17 [Rx] Docusate [Colace] 100 mg PO TID 09/04/17 [History] Multivit-Min/Iron Fum/Folic AC [Anktm-Abhkifq-Evydovsk Tablet] 1 each PO DAILY 09/04/17 [History] Scopolamine Patch [Transderm-Scop] 1.5 mg TD Q72H 09/04/17 [History] Sennosides [Senna] 8.6 mg PO TID 09/04/17 [History] Acetaminophen [Tylenol] 650 mg PO Q6H PRN 11/05/17 [History] Bisacodyl [Dulcolax] 10 mg PO DAILY PRN 11/05/17 [History] Simethicone [Bicarsim] 80 mg PO PRN PRN 11/05/17 [History] Potassium Chloride [K-Tab ER] 20 meq PO DAILY 11/06/17 [History] Amoxicillin/Clavulanate [Augmentin] 875 mg PO BIDWM #5 tablet 11/10/17 [Rx] Metoprolol [Lopressor] 12.5 mg PO BID #60 tablet 11/10/17 [Rx] predniSONE [PredniSONE] 40 mg PO DAILY #0 tablet 11/10/17 [Rx] predniSONE [PredniSONE] See Taper PO DAILY #21 tablet 11/10/17 [Rx] Allergies/Adverse Reactions: 3 Allergy/AdvReac Type Severity Reaction Status Date / Time No Known Allergies Allergy Verified 09/04/17 21:39 - Respiratory Orders Smoking Cessation: Smoking cessation has been advised. For more information, call the [place] Tobacco Quit Line at 8-362-WLPY-NOW. - Ancillary Orders May use pressure relief devices daily prn - Advance Directives Code Status: Full Code - Rehabiliation Orders Rehab Potential: Good Rehab Orders: Evaluation for Physical Therapy, Evaluation for Occupational Therapy - Treatments Skin tear care topically daily PRN per policy - Diet Orders No Added Salt (WILLIAM) CERTIFICATION: I certify that the transfer of the above named patient to an Extended Care Facility is necessary for the continuing treatment of the diagnosis listed. The above information is true and accurate reflection of patient's current condition. Confidential - Redisclosure prohibited without a patient's written consent.
== END 2017-11-10 11:04 | DRG 871 ==
LOC: ICNU → SUATTDRO 03:03 → 2NNU 11-07 14:29
PROVIDERS: ADMIT Internal Medicine; ATTEND Family Medicine